=== PATIENT | female | born 1970 | race American Indian/Alaskan Native ===

== ENCOUNTER 2018-02-05 03:07 | Emergency (ER) | payer MEDICAID ==
[2018-02-05 03:31] VITALS: BP 133/66
[2018-02-05 04:22] LABS: Basophils % (Auto) 0.3 % (0.0-1.8); Eosinophils # (Auto) 0.1 K/mm3 (0.0-0.4); Eosinophils % (Auto) 1.2 % (0.0-4.3); Hematocrit 36.3 % (30.3-42.9); Hemoglobin 11.8 gm/dl (10.1-14.3); Lymphocytes # (Auto) 2.8 K/mm3 (1.2-5.4); Lymphocytes % (Auto) 34.1 % (13.4-35.0); Mean Corpuscular HGB Conc 33 % (30-34); Mean Corpuscular Hemoglobin 27 pg (28-32); Mean Corpuscular Volume 83 fl (79-97); Monocytes # (Auto) 0.7 K/mm3 (0.0-0.8); Monocytes % (Auto) 8.4 % (0.0-7.3); Platelet Count 284 K/mm3 (140-440); Red Blood Count 4.37 M/mm3 (3.65-5.03); Red Cell Distribution Width 14.2 % (13.2-15.2)
[2018-02-05 04:34] LABS: BUN/Creatinine Ratio 17; Blood Urea Nitrogen 12 mg/dL (7-17); Calcium 9.7 mg/dL (8.4-10.2); Hemolysis Index 45
== END 2018-02-05 03:46 | disposition left against medical advice (07) ==
LOC: ED 03:07
DX: N89.8 Other specified noninflammatory disorders of vagina (principal); R06.02 Shortness of breath; R68.2 Dry mouth, unspecified; Z53.21 Procedure and treatment not carried out due to patient leaving prior to being seen by health care provider
CPT/HCPCS: 36415; 80048; 82805; 82962; 84703; 85025

== ENCOUNTER 2018-02-05 19:48 | Emergency (ER) | payer MEDICAID ==
[2018-02-05 21:15] LABS: Basophils % (Auto) 0.2 % (0.0-1.8); Eosinophils # (Auto) 0.1 K/mm3 (0.0-0.4); Eosinophils % (Auto) 0.9 % (0.0-4.3); Hematocrit 36.1 % (30.3-42.9); Hemoglobin 11.8 gm/dl (10.1-14.3); Lymphocytes # (Auto) 2.6 K/mm3 (1.2-5.4); Lymphocytes % (Auto) 28.3 % (13.4-35.0); Mean Corpuscular HGB Conc 33 % (30-34); Mean Corpuscular Hemoglobin 27 pg (28-32); Mean Corpuscular Volume 83 fl (79-97); Monocytes # (Auto) 0.7 K/mm3 (0.0-0.8); Monocytes % (Auto) 7.5 % (0.0-7.3); Platelet Count 284 K/mm3 (140-440); Red Blood Count 4.37 M/mm3 (3.65-5.03); Red Cell Distribution Width 14.4 % (13.2-15.2)
[2018-02-05 21:37] LABS: BUN/Creatinine Ratio 18; Blood Urea Nitrogen 14 mg/dL (7-17); Calcium 9.3 mg/dL (8.4-10.2); Hemolysis Index 25
[2018-02-06] MEDS ORDERED: NACL 0.9% 1000 ML 1,000 ML ONE ×2 (02:25→03:01)
[2018-02-06] MEDS ORDERED: NACL 0.9% 1000 ML 1,000 ML IV ONE ×3 (02:25→04:04)
--- NOTE | 2018-02-06 03:17 | Emergency Department Report ---
<RD ALMAZAN - Last Filed: 02/06/18 06:56> ED General Adult HPI - General Chief complaint: Hyperglycemia Stated complaint: VAGINAL IRRITATION/HIGH BLOOD SUGAR Time Seen by Provider: 02/06/18 02:01 Source: patient Mode of arrival: Ambulatory Limitations: No Limitations - History of Present Illness Initial comments: 47-year-old -[place] female comes in stating that she has vaginal irritation 1 month. Patient reports " I feel like my sugar is high ". Patient reports she hasn't been taking care of herself lately and had been under stress reports that she's been out of her meds for a few days. She reports she's been off her Lantus for 3 weeks she usually takes 60 units at night. She reports that she has a few pills left of her metformin at 500 mg that she takes twice a day. She also reports that she takes Paxil 20 mg a day and lisinopril 5 mg a day. Patient has recently moved here from [place] on January 31 and if she is getting herself situated. . Location: genitals (vaginal irritation) Treatments Prior to Arrival: none - Related Data Previous Rx's Medication Instructions Recorded Last Taken Type Fluconazole [Diflucan] 150 mg PO DAILY #1 tablet 02/06/18 Unknown Rx Insulin Glargine,Hum.rec.anlog 60 unit SQ QHS #3 insuln.pen 02/06/18 Unknown Rx [Lantus Solostar] Lisinopril [Zestril TAB] 5 mg PO QDAY #30 tablet 02/06/18 Unknown Rx PARoxetine [Paxil] 20 mg PO DAILY #30 tablet 02/06/18 Unknown Rx metFORMIN [Glucophage] 500 mg PO BID #60 tablet 02/06/18 Unknown Rx Allergies Allergy/AdvReac Type Severity Reaction Status Date / Time No Known Allergies Allergy Verified 02/06/18 02:34 ED Review of Systems ROS: Stated complaint: VAGINAL IRRITATION/HIGH BLOOD SUGAR Other details as noted in HPI Constitutional: denies: chills, fever Eyes: eye pain (I pressure). denies: eye discharge, vision change ENT: denies: ear pain, throat pain Respiratory: denies: cough, shortness of breath, wheezing Cardiovascular: denies: chest pain, palpitations Endocrine: increased urine Gastrointestinal: denies: abdominal pain, nausea, diarrhea Genitourinary: frequency. denies: urgency, dysuria, discharge Musculoskeletal: denies: back pain, joint swelling, arthralgia Skin: denies: rash, lesions Neurological: denies: headache, weakness, paresthesias Psychiatric: denies: anxiety, depression, auditory hallucinations, visual hallucinations, homicidal thoughts, suicidal thoughts Hematological/Lymphatic: denies: easy bleeding, easy bruising ED Past Medical Hx - Past Medical History Previous Medical History?: Yes Hx Hypertension: Yes Hx Diabetes: Yes - Surgical History Past Surgical History?: No - Social History Smoking Status: Never Smoker Substance Use Type: Alcohol - Medications Home Medications: Home Medications Medication Instructions Recorded Confirmed Last Taken Type Fluconazole [Diflucan] 150 mg PO DAILY #1 tablet 02/06/18 Unknown Rx Insulin Glargine,Hum.rec.anlog 60 unit SQ QHS #3 insuln.pen 02/06/18 Unknown Rx [Lantus Solostar] Lisinopril [Zestril TAB] 5 mg PO QDAY #30 tablet 02/06/18 Unknown Rx PARoxetine [Paxil] 20 mg PO DAILY #30 tablet 02/06/18 Unknown Rx metFORMIN [Glucophage] 500 mg PO BID #60 tablet 02/06/18 Unknown Rx ED Physical Exam - General Limitations: No Limitations General appearance: alert, in no apparent distress - Head Head exam: Present: atraumatic, normocephalic - Eye Eye exam: Present: normal appearance - ENT ENT exam: Present: mucous membranes moist - Neck Neck exam: Present: normal inspection, full ROM. Absent: lymphadenopathy - Respiratory Respiratory exam: Present: normal lung sounds bilaterally. Absent: respiratory distress - Cardiovascular Cardiovascular Exam: Present: regular rate, normal rhythm. Absent: systolic murmur, diastolic murmur, rubs, gallop - GI/Abdominal GI/Abdominal exam: Present: soft, normal bowel sounds. Absent: distended, tenderness - Back Exam Back exam: Present: normal inspection, full ROM ED Course Vital Signs 02/05/18 02/05/18 02/06/18 20:09 20:36 04:42 Temperature 98.3 F 98.3 F 98.1 F Pulse Rate 92 H 90 70 Respiratory 20 18 17 Rate Blood Pressure 134/79 134/79 O2 Sat by Pulse 96 94 99 Oximetry ED Medical Decision Making - Lab Data Result diagrams: 02/05/18 21:01 02/05/18 21:01 - Medical Decision Making Patient has been evaluated by this provider fast track. Patient comes in with hyperglycemia. Patient's has had 3 L of normal saline. She's had now 9 units of Novolin regular insulin. Discussed with and Dr. Torres. Critical care attestation.: If time is entered above; I have spent that time in minutes in the direct care of this critically ill patient, excluding procedure time. ED Disposition Clinical Impression: Hyperglycemia due to type 2 diabetes mellitus Qualifiers: Diabetes mellitus manager intermediate insulin use: with manager intermediate use Qualified Code(s): E11.65 - Type 2 diabetes mellitus with hyperglycemia Disposition: - TO HOME OR SELFCARE Is pt being admited?: No Does the pt Need Aspirin: No Condition: Stable Instructions: Diabetes Mellitus Type 2 in Adults (ED) Additional Instructions: Please take medication as prescribed. It is imperative that she follow up with primary care have given you a handout to calls to make an appointment in the next 5-7 days. Prescriptions: Insulin Glargine,Hum.rec.anlog [Lantus Solostar] 60 unit SQ QHS #3 insuln.pen Fluconazole [Diflucan] 150 mg PO DAILY #1 tablet Lisinopril [Zestril TAB] 5 mg PO QDAY #30 tablet metFORMIN [Glucophage] 500 mg PO BID #60 tablet PARoxetine [Paxil] 20 mg PO DAILY #30 tablet Referrals: [facility] [Outside] - 3-5 Days [facility], [facility] [Provider Group] - 3-5 Days [facility] [Provider Group] - 3-5 Days [facility] [Provider Group] - 3-5 Days [facility] [Provider Group] - 3-5 Days Forms: Work/School Release Form(ED) Print Language: KAZAKH <LUZ RYAN - Last Filed: 02/06/18 08:40> ED Medical Decision Making - Lab Data Result diagrams: 02/05/18 21:01 02/05/18 21:01 - Medical Decision Making Patient reevaluated by myself. Patient's glucose is 285 on reevaluation which is trending down. Patient will be discharged home with prescriptions for Lantus 60 units subcutaneous at bedtime and metformin 500 mg by mouth twice a day. Refilled lisinopril 5 mg by mouth daily and Paxil 20 mg by mouth daily. Start Diflucan 150 mg by mouth once. Patient given one month's supply of medications and instructed to follow up with [facility] for refills. Follow-up with primary care for management of diabetes type 2 it's [facility] with referrals to endocrinology. Patient instructed to follow up in emergency room if symptoms of hyperglycemia returns. Patient was educated on signs and symptoms of when to return. ED Disposition Is pt being admited?: No Time of Disposition: 08:14
[2018-02-06] MEDS ORDERED: HumuLIN R IV ONE ×2 (03:58→06:57)
[2018-02-06] MEDS ORDERED: HumuLIN R SUB-Q ONE (05:42)
[2018-02-06 08:41] VITALS: BP 136/80
== END 2018-02-06 08:39 | disposition home or self-care (01) ==
LOC: ED 19:48
DX: E11.65 Type 2 diabetes mellitus with hyperglycemia (principal); I10 Essential (primary) hypertension; Z79.4 Long term (current) use of insulin
CPT/HCPCS: 36415; 80048; 82805; 82962; 85025; 96361; 96372; 96374; 96375; 99284; J7030; J1815

== ENCOUNTER 2018-09-24 21:27 | Emergency (ER) | payer MEDICAID, OTHER ==
--- NOTE | 2018-09-24 21:38 | Emergency Department Report ---
Blank Doc - Documentation Documentation: This is a 48-year-old female that presents with chest pain with sob. This initial assessment/diagnostic orders/clinical plan/treatment(s) is/are subject to change based on patient's health status, clinical progression and re- assessment by fellow clinical providers in the ED. Further treatment and workup at subsequent clinical providers discretion. Patient/guardians urged not to elope from the ED as their condition may be serious if not clinically assessed and managed. Initial orders include: 1- Patient sent to [facility] for further evaluation and treatment 2- labs 3- EKG 4-CXR
[2018-09-24 21:40] VITALS: BP 128/74
[2018-09-24 22:29] LABS: INR 0.95 (0.87-1.13)
[2018-09-24 22:30] LABS: Partial Thromboplastin Time 25.9 Sec. (24.2-36.6)
[2018-09-24 22:37] LABS: Basophils % (Auto) 0.2 % (0.0-1.8); Eosinophils # (Auto) 0.1 K/mm3 (0.0-0.4); Eosinophils % (Auto) 1.6 % (0.0-4.3); Hematocrit 36.7 % (30.3-42.9); Hemoglobin 12.1 gm/dl (10.1-14.3); Lymphocytes # (Auto) 2.3 K/mm3 (1.2-5.4); Lymphocytes % (Auto) 26.9 % (13.4-35.0); Mean Corpuscular HGB Conc 33 % (30-34); Mean Corpuscular Volume 84 fl (79-97); Monocytes # (Auto) 0.5 K/mm3 (0.0-0.8); Monocytes % (Auto) 6.4 % (0.0-7.3); Platelet Count 222 K/mm3 (140-440); Red Blood Count 4.37 M/mm3 (3.65-5.03); Red Cell Distribution Width 14.3 % (13.2-15.2)
[2018-09-24 22:38] LABS: Alanine Aminotransferase 28 units/L (7-56); Albumin 3.3 g/dL (3.9-5); BUN/Creatinine Ratio 16; Blood Urea Nitrogen 13 mg/dL (7-17); Calcium 9.1 mg/dL (8.4-10.2); Hemolysis Index 35
--- NOTE | 2018-09-24 23:24 | XRay Report ---
PROCEDURE: XR CHEST ROUTINE 2V TECHNIQUE: PA and lateral chest radiographs were obtained. HISTORY: Chest Pain COMPARISONS: None. FINDINGS: Heart: Normal. Mediastinum/Vessels: Normal. Lungs/Pleural space: Normal. Bony thorax: No acute osseous abnormality. IMPRESSION: Normal examination. This document is electronically signed by Brii Wu DO., September 24 2018 11:22:40 PM ET
== END 2018-09-25 02:30 | disposition left against medical advice (07) ==
LOC: ED 21:27
DX: R07.89 Other chest pain (principal); Z53.21 Procedure and treatment not carried out due to patient leaving prior to being seen by health care provider
CPT/HCPCS: 36415; 71046; 80053; 84484; 84703; 85025; 85610; 85730; 93005; 93010

== ENCOUNTER 2018-09-26 01:30 | Emergency (ER) | payer SELFPAY ==
[2018-09-26 02:41] VITALS: BP 163/88
[2018-09-26 03:55] LABS: Basophils % (Auto) 0.3 % (0.0-1.8); Eosinophils # (Auto) 0.1 K/mm3 (0.0-0.4); Eosinophils % (Auto) 1.2 % (0.0-4.3); Hematocrit 38.3 % (30.3-42.9); Hemoglobin 12.7 gm/dl (10.1-14.3); Lymphocytes # (Auto) 2.3 K/mm3 (1.2-5.4); Lymphocytes % (Auto) 28.7 % (13.4-35.0); Mean Corpuscular HGB Conc 33 % (30-34); Mean Corpuscular Hemoglobin 28 pg (28-32); Mean Corpuscular Volume 83 fl (79-97); Monocytes # (Auto) 0.5 K/mm3 (0.0-0.8); Monocytes % (Auto) 6.3 % (0.0-7.3); Platelet Count 241 K/mm3 (140-440); Red Blood Count 4.59 M/mm3 (3.65-5.03); Red Cell Distribution Width 14.2 % (13.2-15.2)
[2018-09-26 03:59] LABS: HCG Qualitative,Urine Negative (Negative)
[2018-09-26 04:04] LABS: Bacteria,Urine 2+ /HPF (Negative); Bilirubin,Urine NEG (Negative); Blood,Urine NEG (Negative); Color,Urine Straw (Yellow); Protein,Urine <15 mg/dL mg/dL (Negative); Urobilinogen,Urine < 2.0 mg/dL (<2.0)
[2018-09-26 04:14] LABS: BUN/Creatinine Ratio 19; Blood Urea Nitrogen 15 mg/dL (7-17); Calcium 8.7 mg/dL (8.4-10.2); Hemolysis Index 4
== END 2018-09-26 07:30 | disposition left against medical advice (07) ==
LOC: ED 01:30
DX: R06.02 Shortness of breath (principal); N89.8 Other specified noninflammatory disorders of vagina; Z53.21 Procedure and treatment not carried out due to patient leaving prior to being seen by health care provider
CPT/HCPCS: 36415; 80048; 81001; 81025; 85025

== ENCOUNTER 2018-11-11 08:25 | Emergency (ER) | payer MEDICAID ==
[2018-11-11] MEDS ORDERED: ASPIRIN PO ONE (08:33)
[2018-11-11 08:34] VITALS: BP 134/80
[2018-11-11 09:04] LABS: Basophils % (Auto) 0.3 % (0.0-1.8); Eosinophils # (Auto) 0.1 K/mm3 (0.0-0.4); Eosinophils % (Auto) 1.4 % (0.0-4.3); Hematocrit 38.9 % (30.3-42.9); Hemoglobin 12.9 gm/dl (10.1-14.3); Lymphocytes # (Auto) 3.6 K/mm3 (1.2-5.4); Lymphocytes % (Auto) 35.5 % (13.4-35.0); Mean Corpuscular HGB Conc 33 % (30-34); Mean Corpuscular Volume 85 fl (79-97); Monocytes # (Auto) 0.8 K/mm3 (0.0-0.8); Monocytes % (Auto) 8.2 % (0.0-7.3); Platelet Count 226 K/mm3 (140-440); Red Blood Count 4.58 M/mm3 (3.65-5.03); Red Cell Distribution Width 13.6 % (13.2-15.2)
--- NOTE | 2018-11-11 09:19 | XRay Report ---
ROUTINE CHEST, TWO VIEWS: HISTORY: chest pain. The trachea, heart, mediastinal contour, lung teague and bony thorax are unremarkable. IMPRESSION: Unremarkable chest x-ray. No change since 09/24/18.
--- NOTE | 2018-11-11 09:21 | Emergency Department Report ---
Chief Complaint: Chest Pain Stated Complaint: CHEST/BACK PAIN/VAGINAL DISCOMFORT Time Seen by Provider: 11/11/18 09:20 - HPI History of Present Illness: CO CP AND BACK PAIN PMH DEPRESSION HTN NAD AT 0920 MSE COMPLETE - Exam Vital Signs: Vital Signs 11/11/18 08:31 Temperature 97.8 F Pulse Rate 82 Respiratory 18 Rate Blood Pressure 134/80 O2 Sat by Pulse 98 Oximetry MSE screening note: Focused history and physical exam performed. Due to findings the following was ordered: ED Medical Decision Making - Lab Data Result diagrams: 11/11/18 08:42 ED Disposition for MSE Condition: Stable
[2018-11-11 09:25] LABS: BUN/Creatinine Ratio 19; Blood Urea Nitrogen 13 mg/dL (7-17); Calcium 9.1 mg/dL (8.4-10.2); Hemolysis Index 4
[2018-11-11] MEDS ORDERED: NACL 0.9% 1000 ML 1,000 ML IV ONE (12:51)
[2018-11-11] MEDS ORDERED: HumuLIN R IV ONE (12:52)
--- NOTE | 2018-11-11 13:13 | Emergency Department Report ---
ED General Adult HPI - General Chief complaint: Chest Pain Stated complaint: CHEST/BACK PAIN/VAGINAL DISCOMFORT Time Seen by Provider: 11/11/18 09:20 Source: patient Mode of arrival: Ambulatory Limitations: No Limitations - History of Present Illness Initial comments: Patient is a 48-year-old -[place] female comes to the ER with numerous complaints including, shortness of breath, elevated blood sugar, she is out of her insulin, and vaginal itching. Patient's home medications include metformin, lisinopril, Paxil, aspirin, iron, vitamin D, and regular insulin pens. Patient states that she has not gotten her vitamin D filled. She states that she is out of her insulin. Past medical history includes diabetes type 2 and hypertension. Patient states she's never been told that she has hyperlipidemia. She denies any previous cardiac history. -: Gradual Associated Symptoms: chest pain, shortness of breath. denies: confusion, cough, diaphoresis, fever/chills, headaches, loss of appetite, malaise, nausea/vomiting, rash, seizure, syncope, weakness Treatments Prior to Arrival: none - Related Data Previous Rx's Medication Instructions Recorded Last Taken Type Lisinopril [Prinivil] 5 mg PO DAILY #30 tablet 06/30/18 Unknown Rx PARoxetine [Paxil] 20 mg PO DAILY #30 tablet 06/30/18 Unknown Rx metFORMIN [Glucophage] 500 mg PO BID #60 tablet 06/30/18 Unknown Rx Insulin Glargine,Hum.rec.anlog 60 unit SQ QHS #3 insuln.pen 11/11/18 Unknown Rx [Lantus Solostar] Allergies Allergy/AdvReac Type Severity Reaction Status Date / Time No Known Allergies Allergy Verified 02/06/18 02:34 ED Review of Systems ROS: Stated complaint: CHEST/BACK PAIN/VAGINAL DISCOMFORT Other details as noted in HPI Comment: All other systems reviewed and negative ED Past Medical Hx - Past Medical History Previous Medical History?: Yes Hx Hypertension: Yes Hx Diabetes: Yes Hx Psychiatric Treatment: Yes (Depression) Additional medical history: h pylori- not treated as of 11-16 - Surgical History Past Surgical History?: Yes Additional Surgical History: Tubal ligation - Family History Family history: no significant - Social History Smoking Status: Never Smoker Substance Use Type: None - Medications Home Medications: Home Medications Medication Instructions Recorded Confirmed Last Taken Type Lisinopril [Prinivil] 5 mg PO DAILY #30 tablet 06/30/18 Unknown Rx PARoxetine [Paxil] 20 mg PO DAILY #30 tablet 06/30/18 Unknown Rx metFORMIN [Glucophage] 500 mg PO BID #60 tablet 06/30/18 Unknown Rx Insulin Glargine,Hum.rec.anlog 60 unit SQ QHS #3 insuln.pen 11/11/18 Unknown Rx [Lantus Solostar] ED Physical Exam - General Limitations: No Limitations General appearance: alert, in no apparent distress - Head Head exam: Present: atraumatic, normocephalic - Eye Eye exam: Present: normal appearance, PERRL, EOMI - ENT ENT exam: Present: mucous membranes moist - Neck Neck exam: Present: normal inspection - Respiratory Respiratory exam: Present: normal lung sounds bilaterally - Cardiovascular Cardiovascular Exam: Present: regular rate - GI/Abdominal GI/Abdominal exam: Present: soft, normal bowel sounds - Rectal Rectal exam: Present: deferred - Extremities Exam Extremities exam: Present: normal inspection, full ROM - Back Exam Back exam: Present: normal inspection, full ROM - Neurological Exam Neurological exam: Present: alert, oriented X3, CN II-XII intact, normal gait - Psychiatric Psychiatric exam: Present: normal affect, normal mood - Skin Skin exam: Present: warm, dry, intact ED Course Vital Signs 11/11/18 08:31 Temperature 97.8 F Pulse Rate 82 Respiratory 18 Rate Blood Pressure 134/80 O2 Sat by Pulse 98 Oximetry ED Medical Decision Making - Lab Data Result diagrams: 11/11/18 08:42 11/11/18 08:42 - EKG Data -: EKG Interpreted by Ak EKG shows normal: sinus rhythm Rate: normal - EKG Data When compared to previous EKG there are: no significant change Interpretation: no acute changes - Radiology Data Radiology results: report reviewed, image reviewed - Medical Decision Making Patient has had 2 negative troponins. She's had 2 12-lead EKGs that showed no acute changes. Patient's lab work was noted. She is hyperglycemic. She was given insulin here in the emergency room. Chest x-ray showed no consolidation and no evidence of dissection. Mediastinum is of normal size. Pt requests a work note; she left work and was told she could not come back until she had a note. Pt is being dc home with dc plan of care that includes her rx and follow up with PCP VSS NAD ambulatory and taking po without difficulty. Vital Signs 11/11/18 08:31 Temperature 97.8 F Pulse Rate 82 Respiratory 18 Rate Blood Pressure 134/80 O2 Sat by Pulse 98 Oximetry Labs 11/11/18 11/11/18 11/11/18 08:42 08:42 11:32 WBC 10.0 RBC 4.58 Hgb 12.9 Hct 38.9 MCV 85 MCH 28 MCHC 33 RDW 13.6 Plt Count 226 Lymph % (Auto) 35.5 H [place] % (Auto) 8.2 H Eos % (Auto) 1.4 Baso % (Auto) 0.3 Lymph # 3.6 [place] # 0.8 Eos # 0.1 Baso # 0.0 Seg Neutrophils % 54.6 Seg Neutrophils # 5.4 Sodium 135 L Potassium 4.2 Chloride 98.7 Carbon Dioxide 24 Anion Gap 17 BUN 13 Creatinine 0.7 Estimated GFR > 60 BUN/Creatinine Ratio 19 Glucose 352 H Calcium 9.1 Troponin T < 0.010 < 0.010 Urine Color Urine Turbidity Urine pH Ur Specific [place] Urine Protein Urine Glucose (UA) Urine Ketones Urine Blood Urine Nitrite Urine Bilirubin Urine Urobilinogen Ur Leukocyte Esterase Urine WBC (Auto) Urine RBC (Auto) U Epithel Cells (Auto) Urine Bacteria (Auto) 11/11/18 11/11/18 14:07 14:22 WBC RBC Hgb Hct MCV MCH MCHC RDW Plt Count Lymph % (Auto) [place] % (Auto) Eos % (Auto) Baso % (Auto) Lymph # [place] # Eos # Baso # Seg Neutrophils % Seg Neutrophils # Sodium Potassium Chloride Carbon Dioxide Anion Gap BUN Creatinine Estimated GFR BUN/Creatinine Ratio Glucose Calcium Troponin T < 0.010 Urine Color Straw Urine Turbidity Clear Urine pH 5.0 Ur Specific [place] 1.027 Urine Protein <15 mg/dl Urine Glucose (UA) >=500 Urine Ketones Neg Urine Blood Neg Urine Nitrite Neg Urine Bilirubin Neg Urine Urobilinogen < 2.0 Ur Leukocyte Esterase Neg Urine WBC (Auto) 2.0 Urine RBC (Auto) < 1.0 U Epithel Cells (Auto) 3.0 Urine Bacteria (Auto) 1+ Critical care attestation.: If time is entered above; I have spent that time in minutes in the direct care of this critically ill patient, excluding procedure time. ED Disposition Clinical Impression: Medical non-compliance, Diabetes, Hyperglycemia, Medication refill Disposition: [id number]-01 TO HOME OR SELFCARE Is pt being admited?: No Does the pt Need Aspirin: No Condition: Stable Instructions: Diabetes Mellitus Type 2 in Adults (ED) Additional Instructions: DIET TOLERATED MEDS ORDERED TODAY IN ER FOLLOW INSTRUCTIONS ON THE BOTTLE FOLLOW UP PCP WITHIN 48 HOURS TO ENSURE YOU ARE GETTING BETTER ACTIVITY TOLERATED MOTRIN OR TYLENOL FOR PAIN OR FEVER RETURN TO THE ER FOR WORSENING SYMPTOMS NOT RELIEVED BY YOUR MEDICATIONS. Prescriptions: Insulin Glargine,Hum.rec.anlog [Lantus Solostar] 60 unit SQ QHS #3 insuln.pen Referrals: [facility] [Primary Care Provider] - 3-5 Days Forms: Work/School Release Form(ED) Time of Disposition: 13:13
[2018-11-11 14:44] LABS: Bacteria,Urine 1+ /HPF (Negative); Bilirubin,Urine NEG (Negative); Blood,Urine NEG (Negative); Color,Urine Straw (Yellow); Protein,Urine <15 mg/dL mg/dL (Negative); RBC,Urine < 1.0 /HPF (0.0-6.0); Urobilinogen,Urine < 2.0 mg/dL (<2.0)
== END 2018-11-11 16:12 | disposition home or self-care (01) ==
LOC: ED 08:25
DX: E11.65 Type 2 diabetes mellitus with hyperglycemia (principal); Z76.0 Encounter for issue of repeat prescription; I10 Essential (primary) hypertension; Z98.51 Tubal ligation status; Z79.4 Long term (current) use of insulin
CPT/HCPCS: 36415; 71046; 80048; 81001; 84484; 85025; 93005; 93010; 96361; 96374; 99284; J7030; J1815

== ENCOUNTER 2019-04-17 02:31 | Emergency (ER) | payer SELFPAY ==
[2019-04-17 03:14] LABS: Basophils % (Auto) 0.3 % (0.0-1.8); Eosinophils # (Auto) 0.1 K/mm3 (0.0-0.4); Eosinophils % (Auto) 1.2 % (0.0-4.3); Hematocrit 36.2 % (30.3-42.9); Hemoglobin 11.8 gm/dl (10.1-14.3); Lymphocytes # (Auto) 3.2 K/mm3 (1.2-5.4); Lymphocytes % (Auto) 40.3 % (13.4-35.0); Mean Corpuscular HGB Conc 33 % (30-34); Mean Corpuscular Volume 84 fl (79-97); Monocytes # (Auto) 0.6 K/mm3 (0.0-0.8); Monocytes % (Auto) 7.6 % (0.0-7.3); Platelet Count 213 K/mm3 (140-440); Red Cell Distribution Width 13.6 % (13.2-15.2)
[2019-04-17 03:21] LABS: BUN/Creatinine Ratio 19; Blood Urea Nitrogen 13 mg/dL (7-17); Calcium 8.8 mg/dL (8.4-10.2); Hemolysis Index 5
[2019-04-17] MEDS ORDERED: HumuLIN R SUB-Q ONE (03:27)
--- NOTE | 2019-04-17 03:39 | XRay Report ---
CHEST 2 VIEWS INDICATION / CLINICAL INFORMATION: SOB. COMPARISON: 11/11/2018 FINDINGS: SUPPORT DEVICES: None. HEART / MEDIASTINUM: No significant abnormality. LUNGS / PLEURA: No significant pulmonary or pleural abnormality. No pneumothorax. ADDITIONAL FINDINGS: No significant additional findings. IMPRESSION: 1. No acute findings. Signer Name: Clark Hernandez MD Signed: 04/17/2019 3:34 AM Workstation Name: [id number]
--- NOTE | 2019-04-17 03:48 | Emergency Department Report ---
HPI - General Chief Complaint: Dyspnea/Respdistress Time Seen by Provider: 04/17/19 02:53 - HPI HPI: 48-year-old female presents to the emergency department with a complaint of a few days of shortness of breath. She also complains of some elevated blood s ugar. The patient does have a history of diabetes for which she takes Lantus 60 units at night but has been out of this medication with the past 4 days. She also says that she has been out of her lisinopril 5 mg and Paxil 20 mg for the past 4 days as well. She thinks that the lack of Paxil could be causing some anxiety and panic attacks and this could be the source of her shortness of breath. She denies any fever, chest pain, nausea, vomiting or diaphoresis. She denies any lower extremity swelling. No recent travel or sick contacts at home. She has not taken anything for her symptoms prior to presentation. She checked her blood sugar prior to arrival today and says it was about 300. No PCP. ED Past Medical Hx - Past Medical History Previous Medical History?: Yes Hx Hypertension: Yes Hx Diabetes: Yes Hx Psychiatric Treatment: Yes (Depression) Additional medical history: h pylori- not treated as of 11-16 - Surgical History Past Surgical History?: Yes Additional Surgical History: Tubal ligation - Social History Smoking Status: Current Some Day Smoker - Medications Home Medications: Home Medications Medication Instructions Recorded Confirmed Last Taken Type metFORMIN [Glucophage] 500 mg PO BID #60 tablet 06/30/18 Unknown Rx ALBUTEROL Inhaler (OR & NICU) 2 puff IH QID PRN #1 inhalation 04/17/19 Unknown Rx [ProAir HFA Inhaler] Insulin Glargine,Hum.rec.anlog 60 unit SQ QHS #1 insuln.pen 04/17/19 Unknown Rx [Lantus Solostar] Lisinopril [Zestril TAB] 5 mg PO QDAY #20 tablet 04/17/19 Unknown Rx PARoxetine [Paxil] 20 mg PO DAILY #14 tablet 04/17/19 Unknown Rx ED Review of Systems ROS: Stated complaint: SOB POSS HIGH BS Other details as noted in HPI Comment: All other systems reviewed and negative Constitutional: denies: chills, fever Eyes: denies: eye pain, vision change ENT: denies: ear pain, throat pain Respiratory: shortness of breath. denies: cough Cardiovascular: denies: chest pain, palpitations Gastrointestinal: denies: abdominal pain, vomiting Genitourinary: denies: dysuria, discharge Musculoskeletal: denies: back pain, arthralgia Neurological: denies: headache, weakness Psychiatric: anxiety. denies: depression Physical Exam - Physical Exam Vital Signs: Vital Signs 04/17/19 02:40 Temperature 98.7 F Pulse Rate 68 Respiratory 14 Rate Blood Pressure 144/67 O2 Sat by Pulse 97 Oximetry Physical Exam: GENERAL: The patient is well-developed well-nourished. HENT: Normocephalic. Atraumatic. Patient has moist mucous membranes. EYES: Extraocular motions are intact. NECK: Supple. Trachea is midline. CHEST/LUNGS: Clear to auscultation. There is no respiratory distress noted. HEART/CARDIOVASCULAR: Regular. There is no tachycardia. There is no murmur. ABDOMEN: Abdomen is soft, nontender. Patient has normal bowel sounds. There is no abdominal distention. SKIN: Skin is warm and dry. NEURO: The patient is awake, alert, and oriented. The patient is cooperative. The patient has no focal neurologic deficits. Normal speech. MUSCULOSKELETAL: There is no tenderness or deformity. There is no evidence of acute injury. ED Course Vital Signs 04/17/19 02:40 Temperature 98.7 F Pulse Rate 68 Respiratory 14 Rate Blood Pressure 144/67 O2 Sat by Pulse 97 Oximetry ED Medical Decision Making - Lab Data Result diagrams: 04/17/19 02:50 04/17/19 02:50 - EKG Data -: EKG Interpreted by Me EKG shows normal: sinus rhythm, axis, intervals, QRS complexes, ST-T waves Rate: normal - EKG Data When compared to previous EKG there are: previous EKG unavailable Interpretation: normal EKG - Radiology Data Radiology results: report reviewed, image reviewed interpreted by me: Chest x-ray does not show any acute process. There are no pleural effusions, obvious pneumonia and there is no pneumothorax. CTA CHEST WITH CONTRAST INDICATION : SOB, elevated dimer. TECHNIQUE: Axial imaging performed through the chest, with contrast bolus timing set to maximize opacification of the pulmonary arteries. 3-plane MIP reformatted images were obtained. All CT scans at this location are performed using CT dose reduction for ALARA by means of automated exposure control. 100 mL of intravenous contrast administered. Consent was obtained prior to the administration of contrast. COMPARISON: Same day chest x-ray. FINDINGS: Bolus: Contrast bolus timing is adequate. PTE: No filling defect is present to suggest PTE. Mediastinum: Heart and great vessels appear normal. No pathologic mediastinal adenopathy. Lungs: Lungs are clear. Upper abdomen: Limited imaging of the upper abdomen shows nothing acute. Bones: Degenerative changes in the spine with nothing acute. IMPRESSION: Negative for PTE. No CHF or pneumonia. - Medical Decision Making This patient presents to the emergency department with a complaint of some elevated blood sugar secondary to medication noncompliance as she has been out of the medication for about 4 days. She also chooses not to take the metformin. She has also been out of her Paxil and her lisinopril. Patient also complains of some shortness of breath. Lungs are clear to auscultation. No tachypnea or accessory muscle use. No signs of any respiratory distress. Chest x-ray was done that does not show any pneumonia, pleural effusions, focal consolidation, pneumothorax, or any other acute process. The patient's blood sugar came back at about 320. She was given 6 units of subcutaneous insulin and upon reevaluation the blood sugar has come down. Rest the patient's labs are mostly unremarkable except for a elevated and equivocal d-dimer. The patient will have a CT angiography of the chest completed. If negative, the patient be discharged home to follow up with primary care and has been given prescriptions for her medications, as well as an albuterol inhaler. If CT angiography is positive for a pulmonary embolism, the patient will be admitted to the hospital by my colleague, Dr Swain. - Differential Diagnosis PE, Asthma, DKA, HHNK, Pneumonia Critical Care Time: No Critical care attestation.: If time is entered above; I have spent that time in minutes in the direct care of this critically ill patient, excluding procedure time. ED Disposition Clinical Impression: Medication refill, Hyperglycemia, Shortness of breath Disposition: DC-07 LEFT AGAINST MED ADVICE Is pt being admited?: No Condition: Stable Additional Instructions: Please follow-up with a primary care physician in the next few days. Take your diabetes and blood pressure medications as previously prescribed. Try and stay away from foods that are high in salt and caffeinated products to help with your blood pressure. Keep a blood pressure log. Try and stay away from foods that are high in sugar, carbohydrates and starches to help with your diabetes. Keep a blood sugar log. Return to the emergency Department with any worsening of your symptoms or any acute distress. Prescriptions: Insulin Glargine,Hum.rec.anlog [Lantus Solostar] 60 unit SQ QHS #1 insuln.pen PARoxetine [Paxil] 20 mg PO DAILY #14 tablet ALBUTEROL Inhaler (OR & NICU) [ProAir HFA Inhaler] 2 puff IH QID PRN #1 inhalation PRN Reason: Shortness Of Breath Lisinopril [Zestril TAB] 5 mg PO QDAY #20 tablet Referrals: PRIMARY CARE, [Primary Care Provider] - 2-3 Days [facility] [Outside] - 2-3 Days [facility] [Outside] - 2-3 Days [facility] [place] [Outside] - 2-3 Days Time of Disposition: 05:36
[2019-04-17] MEDS ORDERED: DUONEB *Not for PRN Use IH ONE (04:28)
[2019-04-17 05:13] LABS: Bilirubin,Urine NEG (Negative); Blood,Urine NEG (Negative); Color,Urine Yellow (Yellow); Protein,Urine <15 mg/dL mg/dL (Negative); Urobilinogen,Urine < 2.0 mg/dL (<2.0)
[2019-04-17 07:19] LABS: HCG Qualitative,Urine Negative (Negative)
--- NOTE | 2019-04-17 08:37 | Cat Scan Report ---
CTA CHEST WITH CONTRAST INDICATION : SOB, elevated dimer. TECHNIQUE: Axial imaging performed through the chest, with contrast bolus timing set to maximize opa cification of the pulmonary arteries. 3-plane MIP reformatted images were obtained. All CT scans at this location are performed using CT dose reduction for ALARA by means of automated exposure control. 100 mL of intravenous contrast administered. Consent was obtained prior to the administration of cont rast. COMPARISON: Same day chest x-ray. FINDINGS: Bolus: Contrast bolus timing is adequate. PTE: No filling defect is present to suggest PTE. Mediastinum: Heart and great vessels appear normal. No pathologic mediastinal adenopathy. Lungs: Lungs are clear. Upper abdomen: Limited imaging of the upper abdomen shows nothing acute. Bones: Degenerative changes in the spine with nothing acute. IMPRESSION: Negative for PTE. No CHF or pneumonia. Signer Name: Alcides Nowak MD Signed: 04/17/2019 8:33 AM Workstation Name: [id number]
[2019-04-17 09:22] VITALS: BP 135/68
--- NOTE | 2019-04-17 09:45 | Emergency Department Report ---
Blank Doc - Documentation Documentation: I was requested by the nurse to see the patient. I saw and examined the patien t. The nurse told me the patient was complaining of chest "pressure". A she states that she is having "panic attacks". Patient told me that she was having "chest congestion". In any case these episodes occurred once at about 9:00 last night and then another time while in the emergency department but was on reported to the nurse". They're associated with shortness of breath and chest "congestion". States she does not have a doctor. She states she had a stress test done many years ago. He has never had a cardiac catheterization. The patient is somewhat morbidly obese. She is in no distress. HEENT sclerae clear normocephalic Neck supple no jugular venous distention Chest clear to auscultation Cardiac S1-S2 regular rate without murmur GI the abdomen is soft and nontender Extremities no Calf pain trace edema Neurological grossly intact Psychiatric mental capacity Assessment Dyspnea Hyperglycemia type 2 diabetes uncontrolled Plan Patient is encouraged to be admitted to the hospital for cardiac workup. The risks and benefits have been explained to her. She states that she just wants an inhaler and inhaler and a prescription for Paxil. She is encouraged to follow-up at her earliest opportunity. She should return should he she desire further evaluation at this hospital. She is signing out AGAINST MEDICAL ADVICE.
== END 2019-04-17 09:56 | disposition left against medical advice (07) ==
LOC: ED 02:31
DX: E11.65 Type 2 diabetes mellitus with hyperglycemia (principal); R06.02 Shortness of breath; I10 Essential (primary) hypertension; F32.9 Major depressive disorder, single episode, unspecified; F17.200 Nicotine dependence, unspecified, uncomplicated; Z98.51 Tubal ligation status
CPT/HCPCS: 36415; 71046; 71275; 80048; 81001; 81025; 82962; 84484; 85025; 85379; 93005; 93010; 94640; 96372; 99285; Q9967; 94644; J1815

== ENCOUNTER 2019-05-15 22:31 | Emergency (ER) | payer SELFPAY ==
[2019-05-15] MEDS ORDERED: ASPIRIN 325 MG TAB PO ONE (23:11)
--- NOTE | 2019-05-15 23:51 | XRay Report ---
CHEST 1 VIEW INDICATION: Chest Pain. COMPARISON: 04/17/2019. FINDINGS: Support devices: None. Heart: Within normal limits. Lungs/Pleura: No acute air space or interstitial disease. Additional findings: None. IMPRESSION: No acute abnormality. Signer Name: Sravan Dean MD Signed: 05/15/2019 11:47 PM Workstation Name: [id number]
[2019-05-16 00:02] LABS: BUN/Creatinine Ratio 15; Blood Urea Nitrogen 12 mg/dL (7-17); Calcium 8.8 mg/dL (8.4-10.2); Hemolysis Index 55
[2019-05-16 00:25] LABS: Basophils % (Auto) 0.4 % (0.0-1.8); Eosinophils # (Auto) 0.1 K/mm3 (0.0-0.4); Eosinophils % (Auto) 1.7 % (0.0-4.3); Hematocrit 35.4 % (30.3-42.9); Hemoglobin 11.6 gm/dl (10.1-14.3); Lymphocytes # (Auto) 2.8 K/mm3 (1.2-5.4); Lymphocytes % (Auto) 36.6 % (13.4-35.0); Mean Corpuscular HGB Conc 33 % (30-34); Mean Corpuscular Volume 84 fl (79-97); Monocytes # (Auto) 0.8 K/mm3 (0.0-0.8); Monocytes % (Auto) 10.1 % (0.0-7.3); Platelet Count 226 K/mm3 (140-440); Red Cell Distribution Width 13.6 % (13.2-15.2)
--- NOTE | 2019-05-16 01:52 | Emergency Department Report ---
ED Chest Pain HPI - General Chief Complaint: Chest Pain Stated Complaint: SOB, OUT OF MEDS, CHEST PAIN, BACK PAIN Time Seen by Provider: 05/16/19 01:30 Source: patient Mode of arrival: Ambulatory Limitations: No Limitations - History of Present Illness Initial Comments: 48-year-old female the past medical history of obesity, hypertension, diabetes, depression, anxiety, and previous H. pylori infection and tubal ligation presents to the hospital complains of ongoing shortness of breath and chest pain. Patient states she's had shortness of breath for a few weeks. She has noticed some mild increased dyspnea while climbing stairs last 2-3 days. Of intermittent left-sided sharp stabbing pain radiating to the back for a few days as well. There are no aggravating or alleviating factors. Pain is not worse with palpation, movement, or deep inspiration. Patient reports cough productive of clear sputum and also feel like sputum is choking her when it gets stuck in her throat. This causes her to have a panic attack as well. She also states that in the past she's been told that she has reflex and might need to be on additional medications. Patient does not smoke, denies history of elevated cholesterol, denies family history CAD, denies history of PE/DVT, recent travel, recent surgery, hemoptysis, or hormone replacement therapy. She was seen here one month ago requesting med refills with complaint of chest pain and shortness of breath that she suspected was due to anxiety. Admission was recommended and patient sign out AMA. Patient not receive any medication scripts at discharge, has not followed up, and therefore has not had any of her medications and one month. She reports that last stress test was several years ago and has never had a cardiac cath. Patient had a elevated d-dimer with a negative CTA chest during her visit here April 17. - Related Data Previous Rx's Medication Instructions Recorded Last Taken Type ALBUTEROL Inhaler (OR & NICU) 2 puff IH QID PRN #1 inhalation 05/16/19 Unknown Rx [ProAir HFA Inhaler] Famotidine [Pepcid] 20 mg PO BID #30 tablet 05/16/19 Unknown Rx Insulin Glargine,Hum.rec.anlog 60 unit SQ QHS 30 Days insuln.pen 05/16/19 Unkno wn Rx [Lantus Solostar] Lisinopril [Zestril TAB] 5 mg PO QDAY #30 tablet 05/16/19 Unknown Rx PARoxetine [Paxil] 20 mg PO DAILY #30 tablet 05/16/19 Unknown Rx guaiFENesin/DEXTROMETHORPHAN 1 each PO BID PRN #20 tab.er.12h 05/16/19 Unknown Rx [Mucinex DM ER 600-30 mg TAB] metFORMIN [Glucophage] 500 mg PO BID #60 tablet 05/16/19 Unknown Rx Allergies Allergy/AdvReac Type Severity Reaction Status Date / Time No Known Allergies Allergy Verified 02/06/18 02:34 Heart Score - HEART Score History: Slightly suspicious EKG: Normal Age: 45-65 Risk factors: > 3 risk factors or hx of atherosclerotic disease Troponin: < normal limit HEART Score: 3 ED Review of Systems ROS: Stated complaint: SOB, OUT OF MEDS, CHEST PAIN, BACK PAIN Other details as noted in HPI Comment: All other systems reviewed and negative ED Past Medical Hx - Past Medical History Previous Medical History?: Yes Hx Hypertension: Yes Hx Diabetes: Yes Hx Psychiatric Treatment: Yes (Depression) Additional medical history: h pylori- not treated as of 11-16 - Surgical History Past Surgical History?: Yes Additional Surgical History: Tubal ligation - Social History Smoking Status: Never Smoker Substance Use Type: None - Medications Home Medications: Home Medications Medication Instructions Recorded Confirmed Last Taken Type ALBUTEROL Inhaler (OR & NICU) 2 puff IH QID PRN #1 inhalation 05/16/19 Unknown Rx [ProAir HFA Inhaler] Famotidine [Pepcid] 20 mg PO BID #30 tablet 05/16/19 Unknown Rx Insulin Glargine,Hum.rec.anlog 60 unit SQ QHS 30 Days insuln.pen 05/16/19 Unknown Rx [Lantus Solostar] Lisinopril [Zestril TAB] 5 mg PO QDAY #30 tablet 05/16/19 Unknown Rx PARoxetine [Paxil] 20 mg PO DAILY #30 tablet 05/16/19 Unknown Rx guaiFENesin/DEXTROMETHORPHAN 1 each PO BID PRN #20 tab.er.12h 05/16/19 Unknown Rx [Mucinex DM ER 600-30 mg TAB] metFORMIN [Glucophage] 500 mg PO BID #60 tablet 05/16/19 Unknown Rx ED Physical Exam - General Limitations: No Limitations - Other Other exam information: General: No acute distress Head: Atraumatic Eyes: normal appearance ENT: Moist mucous membranes Neck: Normal appearance, no midline tenderness Chest: Clear to auscultation bilaterally, no respiratory distress , chest wall nontender CV: Regular rate and rhythm Abdomen: Soft, normal bowel sounds, nontender, nondistended, no rebound or guarding Back: Normal inspection Extremity: Normal inspection infection, full range of motion, no calf tenderness or leg edema Neuro: Alert O x 3, no facial asymmetry, speech clear, no gross motor sensory deficit Psych: Appropriate behavior Skin: No rash ED Course Vital Signs 05/15/19 22:38 Temperature 97.9 F Pulse Rate 81 Respiratory 20 Rate Blood Pressure 149/73 O2 Sat by Pulse 99 Oximetry DENIS score - Denis Score Age > 65: (0) No Aspirin use within the Past 7 Days: (0) No 3 or more CAD Risk Factors: (1) Yes 2 or more Angina events in past 24 hrs: (0) No Known CAD with more than 50% Stenosis: (0) No Elevated Cardiac Markers: (0) No ST Deviation Greater than 0.5mm: (0) No DENIS Score: 1 ED Medical Decision Making - Lab Data Result diagrams: 05/15/19 23:15 05/15/19 23:15 Lab Results 05/15/19 05/15/19 05/15/19 Range/Units 23:15 23:15 23:17 WBC 7.6 (4.5-11.0) K/mm3 RBC 4.20 (3.65-5.03) M/mm3 Hgb 11.6 (10.1-14.3) gm/dl Hct 35.4 (30.3-42.9) % MCV 84 (79-97) fl MCH 28 (28-32) pg MCHC 33 (30-34) % RDW 13.6 (13.2-15.2) % Plt Count 226 (140-440) K/mm3 Lymph % (Auto) 36.6 H (13.4-35.0) % [place] % (Auto) 10.1 H (0.0-7.3) % Eos % (Auto) 1.7 (0.0-4.3) % Baso % (Auto) 0.4 (0.0-1.8) % Lymph # 2.8 (1.2-5.4) K/mm3 [place] # 0.8 (0.0-0.8) K/mm3 Eos # 0.1 (0.0-0.4) K/mm3 Baso # 0.0 (0.0-0.1) K/mm3 Seg Neutrophils % 51.2 (40.0-70.0) % Seg Neutrophils # 3.9 (1.8-7.7) K/mm3 Sodium 135 L (137-145) mmol/L Potassium 4.1 (3.6-5.0) mmol/L Chloride 98.7 (98-107) mmol/L Carbon Dioxide 22 (22-30) mmol/L Anion Gap 18 mmol/L BUN 12 (7-17) mg/dL Creatinine 0.8 (0.7-1.2) mg/dL Estimated GFR > 60 ml/min BUN/Creatinine Ratio 15 % Glucose 398 H (65-100) mg/dL POC Glucose 331 H (70-105) Calcium 8.8 (8.4-10.2) mg/dL Troponin T < 0.010 (0.00-0.029) ng/mL 05/16/19 05/16/19 Range/Units 02:04 02:04 WBC (4.5-11.0) K/mm3 RBC (3.65-5.03) M/mm3 Hgb (10.1-14.3) gm/dl Hct (30.3-42.9) % MCV (79-97) fl MCH (28-32) pg MCHC (30-34) % RDW (13.2-15.2) % Plt Count (140-440) K/mm3 Lymph % (Auto) (13.4-35.0) % [place] % (Auto) (0.0-7.3) % Eos % (Auto) (0.0-4.3) % Baso % (Auto) (0.0-1.8) % Lymph # (1.2-5.4) K/mm3 [place] # (0.0-0.8) K/mm3 Eos # (0.0-0.4) K/mm3 Baso # (0.0-0.1) K/mm3 Seg Neutrophils % (40.0-70.0) % Seg Neutrophils # (1.8-7.7) K/mm3 Sodium (137-145) mmol/L Potassium (3.6-5.0) mmol/L Chloride (98-107) mmol/L Carbon Dioxide (22-30) mmol/L Anion Gap mmol/L BUN (7-17) mg/dL Creatinine (0.7-1.2) mg/dL Estimated GFR ml/min BUN/Creatinine Ratio % Glucose (65-100) mg/dL POC Glucose 282 H (70-105) Calcium (8.4-10.2) mg/dL Troponin T < 0.010 (0.00-0.029) ng/mL - EKG Data -: EKG Interpreted by Me EKG shows normal: sinus rhythm, ST-T waves (no stemi) Rate: normal - Radiology Data Radiology results: report reviewed CHEST 1 VIEW INDICATION: Chest Pain. COMPARISON: 04/17/2019. FINDINGS: Support devices: None. Heart: Within normal limits. Lungs/Pleura: No acute air space or interstitial disease. Additional findings: None. IMPRESSION: No acute abnormality. - Medical Decision Making Once again admission was offered for cardiac evaluation and stress testing given patient's risk factors and continued dyspnea and also patient complains of increased tiredness and fatigue. Patient refuses admission and therefore be signing out AGAINST MEDICAL ADVICE. Outpatient allergy follow-up provided for outpatient stress testing. Patient's medications will be refilled. She'll also be prescribed GERD medication and encouraged to follow-up primary care doctor for further management. She has a PERC PE Score of 0 and therefore a ddimer was not obtained. elevated glucose trending downward without treatment, no dka - Differential Diagnosis mi, unstable angina, pe, pneumonia, bronchitis, anxiety, reactive airway dz Critical Care Time: No Critical care attestation.: If time is entered above; I have spent that time in minutes in the direct care of this critically ill patient, excluding procedure time. ED Disposition Clinical Impression: Chest congestion, SOB (shortness of breath), Chest pain, Diabetes, HTN (hypertension), Nonadherence to medication, GERD (gastroesophageal reflux disease) Disposition: LEFT AGAINST MED ADVICE Is pt being admited?: No Does the pt Need Aspirin: No Condition: Stable Instructions: Chest Pain (ED), Diabetes Mellitus Type 2 in Adults (ED), Hypertension (ED), Gastroesophageal Reflux Disease (ED) Additional Instructions: Take the medication as prescribed. Follow-up with your doctor or doctor/clinic provided. Return if symptoms worsen as indicated by your discharge instructions. Prescriptions: metFORMIN [Glucophage] 500 mg PO BID #60 tablet Insulin Glargine,Hum.rec.anlog [Lantus Solostar] 60 unit SQ QHS 30 Days insuln.pen guaiFENesin/DEXTROMETHORPHAN [Mucinex DM ER 600-30 mg TAB] 1 each PO BID PRN #20 tab.er.12h PRN Reason: Cough PARoxetine [Paxil] 20 mg PO DAILY #30 tablet Famotidine [Pepcid] 20 mg PO BID #30 tablet ALBUTEROL Inhaler (OR & NICU) [ProAir HFA Inhaler] 2 puff IH QID PRN #1 inhalation PRN Reason: Shortness Of Breath Lisinopril [Zestril TAB] 5 mg PO QDAY #30 tablet Referrals: [facility] [Provider Group] - 7-10 days (Gi doctor ) ADDY WALKER MD [Staff Physician] - 3-5 Days [facility] MARIO MD [Primary Care Provider] - 3-5 Days Forms: AMA Form Time of Disposition: 02:52
[2019-05-16] MEDS ORDERED: guaiFENesin ER 600 MG TAB PO ONE (02:00)
[2019-05-16 03:23] VITALS: BP 141/65
== END 2019-05-16 03:22 | disposition left against medical advice (07) ==
LOC: ED 22:31
DX: K21.9 Gastro-esophageal reflux disease without esophagitis (principal); R07.89 Other chest pain; R06.02 Shortness of breath; I10 Essential (primary) hypertension; E11.9 Type 2 diabetes mellitus without complications
CPT/HCPCS: 36415; 71045; 80048; 82962; 84484; 85025; 93005; 93010

== ENCOUNTER 2019-05-19 05:53 | Inpatient (IN) | payer OTHER ==
[2019-05-19] MEDS ORDERED: ASPIRIN 325 MG TAB PO ONE (06:17)
--- NOTE | 2019-05-19 06:51 | XRay Report ---
CHEST 1 VIEW INDICATION: Chest Pain. COMPARISON: 05/15/2019. FINDINGS: Support devices: None. Heart: Within normal limits. Lungs/Pleura: No acute air space or interstitial disease. Additional findings: None. IMPRESSION: No acute abnormality. Signer Name: Sravan Dean MD Signed: 05/19/2019 6:47 AM Workstation Name: [id number]
[2019-05-19 07:47] LABS: Basophils % (Auto) 0.3 % (0.0-1.8); Eosinophils % (Auto) 0.4 % (0.0-4.3); Hematocrit 34.6 % (30.3-42.9); Hemoglobin 11.5 gm/dl (10.1-14.3); Lymphocytes # (Auto) 1.6 K/mm3 (1.2-5.4); Lymphocytes % (Auto) 14.3 % (13.4-35.0); Mean Corpuscular HGB Conc 33 % (30-34); Mean Corpuscular Volume 84 fl (79-97); Monocytes # (Auto) 0.9 K/mm3 (0.0-0.8); Platelet Count 257 K/mm3 (140-440); Red Blood Count 4.13 M/mm3 (3.65-5.03); Red Cell Distribution Width 13.8 % (13.2-15.2)
[2019-05-19 07:48] LABS: Alanine Aminotransferase 19 units/L (7-56); Albumin 3.6 g/dL (3.9-5)
[2019-05-19] MEDS ORDERED: FAMOTIDINE 20 MG/2 ML INJ IV ONE (07:48)
[2019-05-19] MEDS ORDERED: ONDANSETRON 4 MG/2 ML INJ IV ONE (07:48)
[2019-05-19] MEDS ORDERED: fentaNYL 100 MCG/2 ML INJ IV ONE (07:48)
[2019-05-19] MEDS ORDERED: NITROGLYCERIN 2% OINT 1 GM TP ONE (07:48)
[2019-05-19 07:49] LABS: Bilirubin,Direct < 0.2 mg/dL (0-0.2)
--- NOTE | 2019-05-19 07:56 | Emergency Department Report ---
HPI - General Chief Complaint: Chest Pain Time Seen by Provider: 05/19/19 07:47 - HPI HPI: Room 7 The patient is a 48-year-old female presenting with chief complaint of chest pain. The patient states for the past 3 days she's had intermittent pain in her chest described as burning and pressure in nature. Patient states she has shortness of breath and nausea this chest pressure. Patient currently gives her chest pressure score of 9/10. Patient denies suicidal ideation. Patient states her last stress test occurred over 10 years ago but she's never had a cardiac catheterization Location: [See above] Duration: [See above] Quality: [See above] Severity: [See above] Timing: [See above] Context: [See above] Modifying factors: [See above] Associated signs and symptoms: [see above] ED Past Medical Hx - Past Medical History Previous Medical History?: Yes Hx Hypertension: Yes Hx Diabetes: Yes Hx Psychiatric Treatment: Yes (Depression) Additional medical history: h pylori- not treated as of 11-16 - Surgical History Additional Surgical History: Tubal ligation - Family History Family history: no significant - Social History Smoking Status: Never Smoker Substance Use Type: None (denies illicit drug use) - Medications Home Medications: Home Medications Medication Instructions Recorded Confirmed Last Taken Type Insulin Glargine,Hum.rec.anlog 60 unit SQ QHS 30 Days insuln.pen 05/16/19 Unknown Rx [Lantus Solostar] Lisinopril [Zestril TAB] 5 mg PO QDAY #30 tablet 05/16/19 Unknown Rx PARoxetine [Paxil] 20 mg PO DAILY #30 tablet 05/16/19 Unknown Rx ED Review of Systems ROS: Stated complaint: CHEST PAIN W/PRESSURE Other details as noted in HPI Constitutional: diaphoresis Eyes: denies: eye pain ENT: throat pain Respiratory: shortness of breath Cardiovascular: chest pain Endocrine: no symptoms reported Gastrointestinal: nausea. denies: vomiting Genitourinary: denies: dysuria Musculoskeletal: denies: back pain Neurological: denies: headache Psychiatric: denies: suicidal thoughts Physical Exam - Physical Exam Vital Signs: Vital Signs 05/19/19 05:57 Temperature 97.6 F Pulse Rate 90 Respiratory 18 Rate Blood Pressure 191/89 O2 Sat by Pulse 97 Oximetry Physical Exam: GENERAL: The patient is well-developed well-nourished female sitting on stretcher not appearing to be in acute distress. [] HEENT: Normocephalic. Atraumatic. Extraocular motions are intact. Patient has moist mucous membranes. NECK: Supple. Trachea Midline CHEST/LUNGS: Clear to auscultation. There is no respiratory distress noted. HEART/CARDIOVASCULAR: Regular. There is no tachycardia. There is no gallop rub or murmur. ABDOMEN: Abdomen is soft, nontender. Patient has normal bowel sounds. There is no abdominal distention. SKIN: There is no rash. There is no diaphoresis. NEURO: The patient is awake, alert, and oriented. The patient is cooperative. The patient has normal speech and gait. MUSCULOSKELETAL: There is no evidence of acute injury. ED Course Vital Signs 05/19/19 05:57 Temperature 97.6 F Pulse Rate 90 Respiratory 18 Rate Blood Pressure 191/89 O2 Sat by Pulse 97 Oximetry ED Medical Decision Making - Lab Data Result diagrams: 05/19/19 07:23 Laboratory Tests 05/19/19 05/19/19 05/19/19 07:23 07:23 07:23 WBC 10.9 RBC 4.13 Hgb 11.5 Hct 34.6 MCV 84 MCH 28 MCHC 33 RDW 13.8 Plt Count 257 Lymph % (Auto) 14.3 [place] % (Auto) 8.0 H Eos % (Auto) 0.4 Baso % (Auto) 0.3 Lymph # 1.6 [place] # 0.9 H Eos # 0.0 Baso # 0.0 Seg Neutrophils % 77.0 H Seg Neutrophils # 8.4 H Sodium 130 L Potassium 4.4 Chloride 96.0 L Carbon Dioxide 20 L Anion Gap 18 BUN 12 Creatinine 0.6 L Estimated GFR > 60 BUN/Creatinine Ratio 20 Glucose 325 H Calcium 8.8 Total Bilirubin 0.60 Direct Bilirubin < 0.2 Indirect Bilirubin 0.4 AST 22 ALT 19 Alkaline Phosphatase 65 Troponin T < 0.010 Total Protein 7.4 Albumin 3.6 L Albumin/Globulin Ratio 0.9 Lipase 26 - EKG Data -: EKG Interpreted by Me EKG shows normal: sinus rhythm Rate: normal - EKG Data When compared to previous EKG there are: previous EKG unavailable Interpretation: normal EKG - Radiology Data Radiology results: report reviewed (chest x-ray), image reviewed (chest x-ray) interpreted by me: Chest x-ray-no focal infiltrate, no pneumothorax [facility] [address] [place] [address] XRay Report Signed Patient: AYAKA LOGAN MR#: [id number] : 1970 Acct:[id number] Age/Sex: 48 / F ADM Date: 05/19/19 Loc: ED Attending Dr: Ordering Physician: NORMAN STILL MD Date of Service: 05/19/19 Procedure(s): XR chest 1V ap Accession Number(s): [id number] cc: ED MD CHEKO Fluoro Time In Minutes: CHEST 1 VIEW INDICATION: Chest Pain. COMPARISON: 05/15/2019. FINDINGS: Support devices: None. Heart: Within normal limits. Lungs/Pleura: No acute air space or interstitial disease. Additional findings: None. IMPRESSION: No acute abnormality. Signer Name: Sravan Dean MD Signed: 05/19/2019 6:47 AM Workstation Name: [id number] Transcribed By: ES Dictated By: Sravan Dean MD Electronically Authenticated By: Sravan Dean MD Signed Date/Time: 05/19/19646 DD/ 6 TD/TT: - Differential Diagnosis ACS, anxiety, GERD, pericarditis Critical care attestation.: If time is entered above; I have spent that time in minutes in the direct care of this critically ill patient, excluding procedure time. ED Disposition Clinical Impression: Chest pain Disposition: -09 OP ADMIT IP TO THIS HOSP Is pt being admited?: Yes Does the pt Need Aspirin: Yes Condition: Fair Instructions: Chest Pain (ED) Referrals: PRIMARY CAREMD [Primary Care Provider] - 3-5 Days Time of Disposition: 08:30 (hospitalist paged)
[2019-05-19 08:04] LABS: BUN/Creatinine Ratio 20; Blood Urea Nitrogen 12 mg/dL (7-17); Calcium 8.8 mg/dL (8.4-10.2); Hemolysis Index 47
[2019-05-19] MEDS ORDERED: MORPHINE 4 MG/1 ML INJ IV PRN (08:43)
[2019-05-19] MEDS ORDERED: ACETAMINOPHEN 325 MG TAB PO PRN (08:43)
[2019-05-19] MEDS ORDERED: oxyCODONE /ACETAMINOPHEN 5-325MG TAB PO PRN (08:43)
[2019-05-19] MEDS ORDERED: DEXTROSE 50% IN WATER (25GM) 50 ML SYRINGE IV PRN (08:48)
[2019-05-19] MEDS ORDERED: NITROGLYCERIN 0.4 MG TAB SUBL SL PRN (08:51)
[2019-05-19] MEDS ORDERED: hydrALAZINE 20 MG/1 ML INJ IV PRN (08:52)
[2019-05-19] MEDS ORDERED: SODIUM CHLORIDE 0.9% 1000 ML 1,000 ML ONE (09:42)
[2019-05-19] MEDS ORDERED: MORPHINE 2 MG/1 ML INJ IV PRN (09:46)
[2019-05-19] MEDS ORDERED: SODIUM CHLORIDE 0.9% 1000 ML 1,000 ML IV ONE (10:00)
--- NOTE | 2019-05-19 10:37 | Consultation ---
History of Present Illness Consult date: 05/19/19 Consult reason: chest pain History of present illness: The patient presented to the emergency department with a three-day history of burning substernal chest pain sometimes radiating to her left upper extremity and associated with nausea and shortness of breath. Past History Past Medical History: diabetes, other (anxiety disorder) Past Surgical History: Other (tubal ligation) Social history: denies: smoking, alcohol abuse Family history: denies: CAD Medications and Allergies Allergies Allergy/AdvReac Type Severity Reaction Status Date / Time No Known Allergies Allergy Verified 02/06/18 02:34 Home Medications Medication Instructions Recorded Confirmed Last Taken Type Insulin Glargine,Hum.rec.anlog 60 unit SQ QHS 30 Days insuln.pen 05/16/19 05/19/19 Unknown Rx [Lantus Solostar] Lisinopril [Zestril TAB] 5 mg PO QDAY #30 tablet 05/16/19 05/19/19 05/18/19 Rx PARoxetine [Paxil] 20 mg PO DAILY #30 tablet 05/16/19 05/19/19 05/18/19 Rx Active Meds: Active Medications Acetaminophen (Tylenol) 650 mg PO Q4HR PRN PRN Reason: Pain MILD(1-3)/Fever >100.5/MCDANIEL Dextrose (D50w (25gm) Syringe) 50 ml IV Q30MIN PRN; Protocol PRN Reason: Hypoglycemia Hydralazine HCl (Apresoline) 20 mg IV Q4HR PRN PRN Reason: Blood Pressure Sodium Chloride (Nacl 0.9% 1000 Ml) 1,000 mls @ 999 mls/hr IV BOLUS ONE Stop: 05/19/19 11:00 Last Admin: 05/19/19 10:05 Dose: 999 mls/hr Documented by: Sodium Chloride (Nacl 0.9% 1000 Ml) 1,000 mls @ 125 mls/hr IV DIRECT DHARA Insulin Glargine (Lantus) 15 units SUB-Q BID DHARA Insulin Human Lispro (Humalog) 0 unit SUB-Q ACHS DHARA; Protocol Lisinopril (Zestril) 40 mg PO QDAY DHARA Morphine Sulfate (Morphine) 2 mg IV Q4HR PRN PRN Reason: Pain , Severe (7-10) Nitroglycerin (Nitrostat) 0.4 mg SL .Q5MIN PRN PRN Reason: Chest Pain Ondansetron HCl (Zofran) 4 mg IV Q8H PRN PRN Reason: Nausea And Vomiting Oxycodone/Acetaminophen (Percocet 5/325) 1 tab PO Q6HR PRN PRN Reason: Pain, Moderate (4-6) Paroxetine HCl (Paxil) 20 mg PO DAILY DHARA Sodium Chloride (Sodium Chloride Flush Syringe 10 Ml) 10 ml IV BID DHARA Sodium Chloride (Sodium Chloride Flush Syringe 10 Ml) 10 ml IV PRN PRN PRN Reason: LINE FLUSH Zolpidem Tartrate (Ambien) 5 mg PO QHS PRN PRN Reason: Insomnia Review of Systems Constitutional: no fever, no chills Ears, nose, mouth and throat: no ear pain, no ear discharge, no sore throat Cardiovascular: chest pain, no orthopnea, no palpitations, no lightheadedness, no shortness of breath Respiratory: shortness of breath, no cough, no hemoptysis Gastrointestinal: nausea, no abdominal pain, no vomiting, no diarrhea, no constipation Genitourinary Female: no dysuria, no urinary frequency Rectal: no pain, no bleeding Musculoskeletal: no neck stiffness, no neck pain, no myalgias Integumentary: no rash, no pruritis Neurological: no weakness, no parathesias, no headaches Endocrine: no cold intolerance, no heat intolerance Hematologic/Lymphatic: no easy bruising, no easy bleeding Allergic/Immunologic: no urticaria, no wheezing Physical Examination Vital Signs Temp Pulse Resp BP Pulse Ox 97.6 F 90 18 191/89 97 05/19/19 05:57 05/19/19 05:57 05/19/19 05:57 05/19/19 05:57 05/19/19 05:57 General appearance: no acute distress HEENT: Positive: EOMI, Normocephaly, Mucus Membranes Moist Neck: Positive: neck supple, trachea midline Cardiac: Positive: Reg Rate and Rhythm, S1/S2 Lungs: Positive: clear to auscultation Neuro: Positive: Grossly Intact Abdomen: Positive: Soft, Active Bowel Sounds. Negative: Tender Skin: Positive: Clear. Negative: Rash Musculoskeletal: Normal Range of Motion Extremities: Present: normal. Absent: edema Results 05/19/19 07:23 05/19/19 07:23 Cardiac Enzymes 05/19/19 Range/Units 07:23 AST 22 (5-40) units/L CBC 05/19/19 Range/Units 07:23 WBC 10.9 (4.5-11.0) K/mm3 RBC 4.13 (3.65-5.03) M/mm3 Hgb 11.5 (10.1-14.3) gm/dl Hct 34.6 (30.3-42.9) % Plt Count 257 (140-440) K/mm3 Lymph # 1.6 (1.2-5.4) K/mm3 [place] # 0.9 H (0.0-0.8) K/mm3 Eos # 0.0 (0.0-0.4) K/mm3 Baso # 0.0 (0.0-0.1) K/mm3 Comprehensive Metabolic Panel 05/19/19 05/19/19 Range/Units 07:23 07:23 Sodium 130 L (137-145) mmol/L Potassium 4.4 (3.6-5.0) mmol/L Chloride 96.0 L (98-107) mmol/L Carbon Dioxide 20 L (22-30) mmol/L BUN 12 (7-17) mg/dL Creatinine 0.6 L (0.7-1.2) mg/dL Glucose 325 H (65-100) mg/dL Calcium 8.8 (8.4-10.2) mg/dL Direct Bilirubin < 0.2 (0-0.2) mg/dL Indirect Bilirubin 0.4 mg/dL AST 22 (5-40) units/L ALT 19 (7-56) units/L Alkaline Phosphatase 65 (35-129) units/L Total Protein 7.4 (6.3-8.2) g/dL Albumin 3.6 L (3.9-5) g/dL - Imaging and Cardiology EKG: image reviewed EKG interpretations - Telemetry EKG Rhythm: Sinus Rhythm - EKG Sinus rhythms and dysrhythmias: sinus rhythm Assessment and Plan Initiate HARI inhibitor or ARB for her BP. Schedule Lexiscan stress MPI this morning. - Patient Problems (1) Chest pain Current Visit: Yes Status: Acute (2) HTN (hypertension) Current Visit: Yes Status: Acute (3) Diabetes Current Visit: Yes Status: Chronic Qualifiers: Diabetes mellitus type: type 2
[2019-05-19] MEDS: INSULIN GLARGINE 100 UNITS/ML SUB-Q SCH ×2 (11:02→22:41)
[2019-05-19] MEDS: PARoxetine 20 MG TAB PO SCH (11:02)
[2019-05-19] MEDS: LISINOPRIL 40 MG TAB PO SCH (11:03)
[2019-05-19] MEDS ORDERED: REGADENOSON 0.4 MG/5 ML INJ IV ONE ×2 (11:55→11:56)
[2019-05-19] MEDS ORDERED: SIMETHICONE 80 MG CHEW TAB PO PRN (12:30)
--- NOTE | 2019-05-19 12:30 | History and Physical Report ---
History of Present Illness Date of examination: 05/19/19 Date of admission: 05/19/19 08:32 Chief complaint: Chest pain History of present illness: Patient is a 48 year old female with a history of diabetes mellitus type 2 who presented to the ED on account of 3 days history of midsternal chest pressure without pain. She has associated shortness of breath, palpitation, headaches, nausea without vomiting and dizziness. She denies cough, fever, chills, leg swelling, orthopnea, PND, syncope or loss of consciousness. She has a remote history of stress test which was negative. Past History Past Medical History: diabetes, other (anxiety disorder) Past Surgical History: Other (tubal ligation) Social history: no significant social history (she denies tobacco, alcohol or i llicit drug use) Family history: CAD (grandmother had heart attack in her 60s) Medications and Allergies Allergies Allergy/AdvReac Type Severity Reaction Status Date / Time No Known Allergies Allergy Verified 02/06/18 02:34 Home Medications Medication Instructions Recorded Confirmed Last Taken Type Insulin Glargine,Hum.rec.anlog 60 unit SQ QHS 30 Days insuln.pen 05/16/19 05/19/19 Unknown Rx [Lantus Solostar] Lisinopril [Zestril TAB] 5 mg PO QDAY #30 tablet 05/16/19 05/19/19 05/18/19 Rx PARoxetine [Paxil] 20 mg PO DAILY #30 tablet 05/16/19 05/19/19 05/18/19 Rx Active Meds: Active Medications Acetaminophen (Tylenol) 650 mg PO Q4HR PRN PRN Reason: Pain MILD(1-3)/Fever >100.5/MCDANIEL Dextrose (D50w (25gm) Syringe) 50 ml IV Q30MIN PRN; Protocol PRN Reason: Hypoglycemia Sodium Chloride (Nacl 0.9% 1000 Ml) 1,000 mls @ 125 mls/hr IV DIRECT DHARA Insulin Glargine (Lantus) 15 units SUB-Q BID DHARA Last Admin: 05/19/19 11:02 Dose: 15 units Documented by: Insulin Human Lispro (Humalog) 0 unit SUB-Q ACHS DHARA; Protocol Lisinopril (Zestril) 40 mg PO QDAY [facility] Last Admin: 05/19/19 11:03 Dose: Not Given Documented by: Morphine Sulfate (Morphine) 2 mg IV Q4HR PRN PRN Reason: Pain , Severe (7-10) Nitroglycerin (Nitrostat) 0.4 mg SL .Q5MIN PRN PRN Reason: Chest Pain Ondansetron HCl (Zofran) 4 mg IV Q8H PRN PRN Reason: Nausea And Vomiting Oxycodone/Acetaminophen (Percocet 5/325) 1 tab PO Q6HR PRN PRN Reason: Pain, Moderate (4-6) Paroxetine HCl (Paxil) 20 mg PO DAILY [facility] Last Admin: 05/19/19 11:02 Dose: 20 mg Documented by: Sodium Chloride (Sodium Chloride Flush Syringe 10 Ml) 10 ml IV BID [facility] Last Admin: 05/19/19 11:02 Dose: 10 ml Documented by: Sodium Chloride (Sodium Chloride Flush Syringe 10 Ml) 10 ml IV PRN PRN PRN Reason: LINE FLUSH Zolpidem Tartrate (Ambien) 5 mg PO QHS PRN PRN Reason: Insomnia Review of Systems All systems: negative (all other systems reviewed with the patient and are negative unless otherwise stated above) Exam - Constitutional Vitals: Temp Pulse Resp BP Pulse Ox 98 F 73 18 129/61 95 05/19/19 07:53 05/19/19 08:45 05/19/19 09:47 05/19/19 10:00 05/19/19 08:45 General appearance: Present: no acute distress, obese - EENT Eyes: Present: PERRL, EOM intact ENT: hearing intact, clear oral mucosa - Neck Neck: Present: supple - Respiratory Respiratory effort: normal Respiratory: bilateral: CTA - Cardiovascular Rhythm: regular Heart Sounds: Present: S1 & S2. Absent: rub, click - Extremities Extremities: pulses symmetrical, No edema Peripheral Pulses: within normal limits - Abdominal General gastrointestinal: Present: soft, non-tender, non-distended, normal bowel sounds Female genitourinary: Present: deferred - Integumentary Integumentary: Present: clear, warm, dry - Musculoskeletal Musculoskeletal: gait normal, strength equal bilaterally - Psychiatric Psychiatric: appropriate mood/affect, intact judgment & insight - Neurologic Neurologic: CNII-XII intact, moves all extremities Results - Labs CBC & Chem 7: 05/19/19 07:23 05/19/19 07:23 Labs: Laboratory Last Values WBC 10.9 K/mm3 (4.5-11.0) 05/19/19 07:23 RBC 4.13 M/mm3 (3.65-5.03) 05/19/19 07:23 Hgb 11.5 gm/dl (10.1-14.3) 05/19/19 07:23 Hct 34.6 % (30.3-42.9) 05/19/19 07:23 MCV 84 fl (79-97) 05/19/19 07:23 MCH 28 pg (28-32) 05/19/19 07:23 MCHC 33 % (30-34) 05/19/19 07:23 RDW 13.8 % (13.2-15.2) 05/19/19 07:23 Plt Count 257 K/mm3 (140-440) 05/19/19 07:23 Lymph % (Auto) 14.3 % (13.4-35.0) 05/19/19 07:23 [place] % (Auto) 8.0 % (0.0-7.3) H 05/19/19 07:23 Eos % (Auto) 0.4 % (0.0-4.3) 05/19/19 07:23 Baso % (Auto) 0.3 % (0.0-1.8) 05/19/19 07:23 Lymph # 1.6 K/mm3 (1.2-5.4) 05/19/19 07:23 [place] # 0.9 K/mm3 (0.0-0.8) H 05/19/19 07:23 Eos # 0.0 K/mm3 (0.0-0.4) 05/19/19 07:23 Baso # 0.0 K/mm3 (0.0-0.1) 05/19/19 07:23 Seg Neutrophils % 77.0 % (40.0-70.0) H 05/19/19 07:23 Seg Neutrophils # 8.4 K/mm3 (1.8-7.7) H 05/19/19 07:23 Sodium 130 mmol/L (137-145) L 05/19/19 07:23 Potassium 4.4 mmol/L (3.6-5.0) 05/19/19 07:23 Chloride 96.0 mmol/L (98-107) L 05/19/19 07:23 Carbon Dioxide 20 mmol/L (22-30) L 05/19/19 07:23 Anion Gap 18 mmol/L 05/19/19 07:23 BUN 12 mg/dL (7-17) 05/19/19 07:23 Creatinine 0.6 mg/dL (0.7-1.2) L 05/19/19 07:23 Estimated GFR > 60 ml/min 05/19/19 07:23 BUN/Creatinine Ratio 20 % 05/19/19 07:23 Glucose 325 mg/dL (65-100) H 05/19/19 07:23 POC Glucose 268 (70-105) H 05/19/19 10:26 Calcium 8.8 mg/dL (8.4-10.2) 05/19/19 07:23 Total Bilirubin 0.60 mg/dL (0.1-1.2) 05/19/19 07:23 Direct Bilirubin < 0.2 mg/dL (0-0.2) 05/19/19 07:23 Indirect Bilirubin 0.4 mg/dL 05/19/19 07:23 AST 22 units/L (5-40) 05/19/19 07:23 ALT 19 units/L (7-56) 05/19/19 07:23 Alkaline Phosphatase 65 units/L (35-129) 05/19/19 07:23 Troponin T < 0.010 ng/mL (0.00-0.029) 05/19/19 09:21 Total Protein 7.4 g/dL (6.3-8.2) 05/19/19 07:23 Albumin 3.6 g/dL (3.9-5) L 05/19/19 07:23 Albumin/Globulin Ratio 0.9 % 05/19/19 07:23 Lipase 26 units/L (13-60) 05/19/19 07:23 Assessment and Plan Assessment and plan: Acute chest pain, rule out ACS -Serial troponin levels negative -Status post stress test which was abnormal -for [facility] in a.m. DM2 with hyperglycemia -on SSI and Lantus Hyponatremia -on IVF, will monitor Metabolic acidosis -on IVF, will monitor Elevated BP without prior diagnosis of hypertension -pt denies ever being diagnosed with hypertension. She stated that she takes lisinopril for kidney protection -BP improved, will monitor DVT prophylaxis: SCD Time spent: 35 minutes Patient admitted to inpatient status Disposition: For [facility] in am
--- NOTE | 2019-05-19 12:55 | Treadmill Report ---
STUDY: Lexiscan stress test REASON FOR STUDY: Chest pain. STRESS TEST PROTOCOL: The patient received 0.4 mg of Lexiscan intravenously over 10 seconds. Tc-99m Tetrofosmin was subsequently injected. Baseline ECG, normal sinus rhythm. Lexiscan ECG, no ischemic changes. No chest pain. No arrhythmias. IMPRESSION: Electrocardiographically negative stress test. Nuclear imaging report to follow. JOB# [id number] CECIL/NTS
[2019-05-19] MEDS: ONDANSETRON 4 MG/2 ML INJ IV PRN (15:01)
[2019-05-19] MEDS: SODIUM CHLORIDE 0.9% 1000 ML 1,000 ML IV SCH ×2 (15:02→22:42)
--- NOTE | 2019-05-19 16:28 | Event Note ---
Date: 05/19/19 S/p lexiscan MPI stress test this AM which showed moderate ischemia. Coronary angiography recommended for definitive diagnosis. Indications, potential risks and benefits of LHC reviewed with pt and she is agreeable to proceed with LHC in AM. NPO after MN. Leonela LITTLEJOHN NP / DR. JI
[2019-05-19] MEDS: INSULIN LISPRO 100 UNIT/ML SUB-Q SCH ×3 (16:35→22:42)
[2019-05-19] MEDS ORDERED: SODIUM CHLORIDE 0.9% 500 ML 500 ML IV SCH (17:00)
--- NOTE | 2019-05-19 21:27 | Treadmill Report ---
THALLIUM REPORT REASON FOR STUDY: Chest pain. IMAGING PROTOCOL: The patient received 10 mCi of technetium Tetrofosmin for rest imaging, and 28 mCi of technetium Tetrofosmin for stress imaging. The patient received 4 mCi of Thallium 201 for rest imaging and 26 mCi of technetium-99 Tetrofosmin for stress imaging. Imaging for all procedures was completed 30-90 minutes following the initial injection of Technetium 99m Tetrofosmin. SPECT imaging in the 180 degree arc was performed in the right anterior oblique projection. Computerized reconstruction of the images was performed for analysis. NUCLEAR IMAGING RESULTS: Normal left ventricular cavity size with no change from stress to rest. Distribution of radionuclide within the left ventricle revealed a small to medium size area of photo-induction involving the inferior and inferoapical region. The degree of photo-induction is moderate. Rest imaging showed partial improvement in this defect. In addition, there is a small area of photo-induction involving the anterior and anteroapical region. The degree of photo-induction is moderate. Rest imaging showed partial improvement in this defect. Gated SPECT imaging revealed normal global LV systolic function with no significant wall motion abnormalities. The calculated left ventricular ejection fraction is 69%. IMPRESSION: Small to medium size, partially reversible inferior and inferoapical defect. Small, partially reversible anterior and anteroapical defect. Normal global left ventricle systolic function with no significant wall motion abnormalities. Ejection fraction 69%. These findings suggest a small area of prior infarction with mild to moderate residual ischemia in the right coronary artery territory. In addition, there is suggestion of a small area of prior infarction with mild residual ischemia in the left anterior descending coronary artery territory. JOB# [id number] CECIL/AG[facility] HOSPITALDamian
[2019-05-19] MEDS ORDERED: ZOLPIDEM 5 MG TAB PO PRN (22:00)
[2019-05-19] MEDS: FAMOTIDINE 20 MG TAB PO SCH (22:41)
[2019-05-20 07:48] LABS: Basophils # (Auto) 0.1 K/mm3 (0.0-0.1); Basophils % (Auto) 0.8 % (0.0-1.8); Eosinophils # (Auto) 0.1 K/mm3 (0.0-0.4); Eosinophils % (Auto) 0.6 % (0.0-4.3); Hematocrit 34.2 % (30.3-42.9); Hemoglobin 11.2 gm/dl (10.1-14.3); Lymphocytes # (Auto) 2.5 K/mm3 (1.2-5.4); Lymphocytes % (Auto) 28.2 % (13.4-35.0); Mean Corpuscular HGB Conc 33 % (30-34); Mean Corpuscular Volume 83 fl (79-97); Monocytes # (Auto) 0.8 K/mm3 (0.0-0.8); Monocytes % (Auto) 9.2 % (0.0-7.3); Platelet Count 250 K/mm3 (140-440); Red Blood Count 4.11 M/mm3 (3.65-5.03); Red Cell Distribution Width 14.1 % (13.2-15.2)
[2019-05-20 08:00] LABS: INR 1.18 (0.87-1.13)
[2019-05-20] MEDS: INSULIN LISPRO 100 UNIT/ML SUB-Q SCH ×2 (08:00→12:04)
[2019-05-20 08:06] LABS: BUN/Creatinine Ratio 14; Blood Urea Nitrogen 7 mg/dL (7-17); Calcium 8.1 mg/dL (8.4-10.2); Chol/HDL Ratio 3.62 %; HDL Cholesterol 43 mg/dL (40-59); Hemolysis Index 21; LDL Cholesterol,Direct 113 mg/dL (50-130)
[2019-05-20] MEDS ORDERED: HEPARIN/NS 5000 UNIT/500ML 1,000 ML IR ONE (08:41)
[2019-05-20] MEDS ORDERED: ASPIRIN EC 325 MG TAB PO ONE ×2 (08:59→10:00)
[2019-05-20] MEDS: MIDAZOLAM 2 MG/2 ML INJ ONE ×2 (09:36→09:40)
[2019-05-20] MEDS: fentaNYL 100 MCG/2 ML INJ ONE ×2 (09:36→09:40)
[2019-05-20] MEDS: LIDOCAINE (2%) 20 MG/1 ML VIAL 20 ML MDV INFILTRATI ONE ×2 (09:36→09:41)
[2019-05-20] MEDS: VERAPAMIL 5 MG/2 ML INJ ONE ×3 (09:37→09:42)
[2019-05-20] MEDS: HEPARIN 10,000 UNITS/10 ML VIAL ONE ×3 (09:38→09:42)
[2019-05-20] MEDS: NITROGLYCERIN SYRINGE 3 ML ONE ×2 (09:39→09:42)
[2019-05-20] MEDS ORDERED: SODIUM CHLORIDE 0.9% 500 ML 500 ML IV SCH (10:00)
--- NOTE | 2019-05-20 10:05 | Progress Note ---
Assessment and Plan Post-cath care. Coronaries patent and normal lv function. Noncardiac chest pain. Patient needs to be more adherent to her diabetic regimen and blood pressure controlled diet and excised. Discussed this in detail with the patient patient's - Patient Problems (1) Abnormal cardiovascular stress test Current Visit: Yes Status: Resolved (2) Chest pain Current Visit: Yes Status: Acute Qualifiers: Chest pain type: unspecified Qualified Code(s): R07.9 - Chest pain, unspecified (3) HTN (hypertension) Current Visit: Yes Status: Acute Qualifiers: Hypertension type: essential hypertension Qualified Code(s): I10 - Essential (primary) hypertension (4) Diabetes Current Visit: Yes Status: Chronic Qualifiers: Diabetes mellitus type: type 1 (5) Nonadherence to medication Current Visit: No Status: Chronic (6) SOB (shortness of breath) Current Visit: No Status: Acute Subjective Date of service: 05/20/19 Principal diagnosis: cp Interval history: cp free this am Objective Vital Signs Temp Pulse Pulse Pulse Resp BP Pulse Ox 05/20/19 07:56 98.6 F 75 18 133/64 98 05/20/19 02:40 98.3 F 71 20 123/62 96 05/19/19 22:52 98.0 F 78 18 141/77 99 05/19/19 22:15 75 75 18 97 05/19/19 19:48 70 05/19/19 19:45 98.0 F 75 18 117/59 97 05/19/19 17:20 69 05/19/19 17:11 98.3 F 76 18 159/70 96 05/19/19 15:39 78 78 98 05/19/19 12:13 168/82 05/19/19 12:11 158/80 05/19/19 12:09 150/80 05/19/19 12:07 155/76 05/19/19 12:05 137/78 05/19/19 12:04 165/86 05/19/19 11:50 124/66 - Physical Examination General: No Apparent Distress HEENT: Positive: EOMI, Normocephaly, Mucus Membranes Moist Neck: Positive: neck supple, trachea midline Cardiac: Positive: Reg Rate and Rhythm Lungs: Positive: clear to auscultation Neuro: Positive: Grossly Intact Abdomen: Positive: Soft, Active Bowel Sounds. Negative: Tender Skin: Positive: Clear. Negative: Rash Musculoskeletal: Normal Range of Motion Extremities: Present: normal. Absent: edema - Labs and Meds Coagulation 05/20/19 Range/Units 07:01 PT 14.9 (12.2-14.9) Sec. INR 1.18 H (0.87-1.13) Lipids 05/20/19 Range/Units 07:01 Triglycerides 115 (2-149) mg/dL Cholesterol 156 (50-199) mg/dL HDL Cholesterol 43 (40-59) mg/dL Cholesterol/HDL Ratio 3.62 % CBC 05/20/19 Range/Units 07:01 WBC 9.0 (4.5-11.0) K/mm3 RBC 4.11 (3.65-5.03) M/mm3 Hgb 11.2 (10.1-14.3) gm/dl Hct 34.2 (30.3-42.9) % Plt Count 250 (140-440) K/mm3 Lymph # 2.5 (1.2-5.4) K/mm3 [place] # 0.8 (0.0-0.8) K/mm3 Eos # 0.1 (0.0-0.4) K/mm3 Baso # 0.1 (0.0-0.1) K/mm3 Comprehensive Metabolic Panel 05/20/19 Range/Units 07:01 Sodium 139 D (137-145) mmol/L Potassium 4.0 (3.6-5.0) mmol/L Chloride 105.2 (98-107) mmol/L Carbon Dioxide 22 (22-30) mmol/L BUN 7 (7-17) mg/dL Creatinine 0.5 L (0.7-1.2) mg/dL Glucose 192 H (65-100) mg/dL Calcium 8.1 L (8.4-10.2) mg/dL - Imaging and Cardiology EKG: image reviewed Cardiac cath: report reviewed (lt main patent, lad patent lcx patent rca patent mid mild luminal irregularities and normal lv function ) - Telemetry EKG Rhythm: Sinus Rhythm - EKG Sinus rhythms and dysrhythmias: sinus rhythm
[2019-05-20] MEDS: FAMOTIDINE 20 MG TAB PO SCH (11:04)
[2019-05-20] MEDS: PARoxetine 20 MG TAB PO SCH (11:05)
[2019-05-20] MEDS: LISINOPRIL 40 MG TAB PO SCH (11:10)
[2019-05-20 11:11] VITALS: BP 139/78
--- NOTE | 2019-05-20 11:17 | Cardiac Catherization Report ---
LEFT HEART CATHETERIZATION PROCEDURE DONE BY: Kenton Busby MD CLINICAL INFORMATION: This is a 48-year-old female with uncontrolled diabetes, morbid obesity, hypertension, presents with chest pain with abnormal stress test, here for a left heart catheterization done with moderate sedation. Total sedation time was 10 minutes, started 9:40 a.m. and finished at 10:50 a.m. Procedure was done via the right radial artery, sterile technique, local anesthesia, 6-[place] radial sheath inserted. Left system engaged with JL3.5 catheter. Left main is large and patent, bifurcates into medium caliber LAD. It is patent with mild tortuosity. Diagonal 1 is a medium caliber and is patent. Diagonal 2 is small caliber and is patent. RCA patent medium to large caliber and patent and bifurcates into medium caliber OM1 and OM2 that are patent. RCA engaged with JR4, is a large dominant vessel, patent with mild luminal irregularities in the midsection. Distal is patent. PDA and PLV are medium caliber and is patent. LV gram in CRISTAL and CERRATO view shows normal LV function, LVEDP 24 mmHg, LV is 132, aortic is 120/67. No gradient across the aortic valve on pullback. The 5-[place] catheters all taken over guidewire; 6-[place] radial sheath was discontinued. Radial band applied. No hematoma, no bleeding. SUMMARY: 1. Left main patent, LAD patent, circumflex patent, OM1 and OM2 patent. RCA large, dominant, patent with mild irregularities. Normal LV function. 2. The patient was done with normal LV function. The patient explained the procedure in detail. JOB# [id number] JOHNSON/AGUSTÍN MILES
[2019-05-20] MEDS: INSULIN GLARGINE 100 UNITS/ML SUB-Q SCH (12:03)
--- NOTE | 2019-05-20 13:21 | Discharge Summary ---
Providers - Providers Date of Admission: 05/19/19 08:32 Date of discharge: 05/20/19 Attending physician: JOSE MANUEL SERNA 05/19/19 08:43 Consult to Physician [CONS] Routine Comment: Consulting Provider: COURTNEY OVERTON Physician Instructions: Reason For Exam: chest pain 05/20/19 09:59 Consult to Cardiac Rehabilitation [CONS] Routine Reason For Exam: Cardiac Rehab Evaluation Primary care physician: MARINE DESIGNER Hospitalization Reason for admission: Acute chest pain r/o ACS, DM2 with hyperglycemia, Hyponatremia Condition: Stable Procedures: [facility] Hospital course: Final discharge diagnosis: Acute chest pain with abnormal stress test -Serial troponin levels negative -[facility] neg for significant stenosis with normal EF DM2 with hyperglycemia -placed on SSI and Lantus Hyponatremia -s/p IVF, improved Metabolic acidosis -s/p IVF, improved New diagnosis of hypertension Obesity with BMI of 36.9 -lifestyle modification recommended Medication non-compliance -pt counseled Disposition: DC-01 TO HOME OR SELFCARE Time spent for discharge: 38 minutes Core Measure Documentation - Palliative Care Palliative Care/ Comfort Measures: Not Applicable - Core Measures Any of the following diagnoses?: none Exam - Constitutional Vitals: Temp Pulse Resp BP Pulse Ox 98.6 F 67 18 139/78 98 05/20/19 07:56 05/20/19 11:10 05/20/19 07:56 05/20/19 11:10 05/20/19 07:56 General appearance: Present: no acute distress, obese - EENT Eyes: Present: PERRL, EOM intact ENT: hearing intact, clear oral mucosa - Neck Neck: Present: supple, normal ROM - Respiratory Respiratory effort: normal Respiratory: bilateral: CTA - Cardiovascular Rhythm: regular Heart Sounds: Present: S1 & S2. Absent: rub, click - Extremities Extremities: No edema - Abdominal General gastrointestinal: Present: soft, non-tender, non-distended, normal bowel sounds - Integumentary Integumentary: Present: clear, warm, dry - Musculoskeletal Musculoskeletal: gait normal, strength equal bilaterally - Psychiatric Psychiatric: appropriate mood/affect, intact judgment & insight - Neurologic Neurologic: CNII-XII intact, moves all extremities Plan Follow up with: PRIMARY CARE, [Primary Care Provider] - 3-5 Days Prescriptions: Aspirin [Adult Aspirin] 81 mg PO DAILY #30 tablet. Insulin NPH/Regular [NovoLIN 70/30] 25 unit SQ BIDDIAB 30 Days #1 bottle Lisinopril [Zestril TAB] 20 mg PO QDAY #30 tablet
[2019-05-20] MEDS: ONDANSETRON 4 MG/2 ML INJ IV PRN (14:06)
== END 2019-05-20 15:54 | disposition home or self-care (01) | DRG 287 ==
LOC: ED 05:53 → 4A 08:32
PROVIDERS: ADMIT Internal Medicine; ATTEND Internal Medicine
PROC: 4A023N7 Measurement of Cardiac Sampling and Pressure, Left Heart, Percutaneous Approach (ICD-10-PCS; principal; 2019-05-20)
PROC: B2111ZZ Fluoroscopy of Multiple Coronary Arteries using Low Osmolar Contrast (ICD-10-PCS; 2019-05-20)
PROC: B2151ZZ Fluoroscopy of Left Heart using Low Osmolar Contrast (ICD-10-PCS; 2019-05-20)
DX: R07.89 Other chest pain (principal); E87.1 Hypo-osmolality and hyponatremia; E87.2 Acidosis; F41.9 Anxiety disorder, unspecified; F32.9 Major depressive disorder, single episode, unspecified; E11.65 Type 2 diabetes mellitus with hyperglycemia; E66.01 Morbid (severe) obesity due to excess calories; Z98.51 Tubal ligation status; Z79.4 Long term (current) use of insulin; Z79.899 Other long term (current) drug therapy; Z82.49 Family history of ischemic heart disease and other diseases of the circulatory system; Z91.14 Patient's other noncompliance with medication regimen; Z68.36 Body mass index [BMI] 36.0-36.9, adult
CPT/HCPCS: 36415; 71045; 78452; 80048; 80061; 80076; 82962; 83036; 83690; 84484; 85025; 85610; 93005; 93010; 93017; 93458; G0378; A9502; C1894; J1644; J1815; J2250; J2405; J2785; J3010; J7030; J7040; Q9967

== ENCOUNTER 2019-06-02 14:37 | Emergency (ER) | payer SELFPAY ==
[2019-06-02 15:57] VITALS: BP 128/75
--- NOTE | 2019-06-02 16:52 | XRay Report ---
CHEST 2 VIEWS INDICATION / CLINICAL INFORMATION: cough. COMPARISON: 05/19/2019 FINDINGS: SUPPORT DEVICES: None. HEART / MEDIASTINUM: No significant abnormality. LUNGS / PLEURA: No significant pulmonary or pleural abnormality. No pneumothorax. ADDITIONAL FINDINGS: No significant additional findings. IMPRESSION: 1. No acute findings. Signer Name: Deondre Black MD Signed: 06/02/2019 4:48 PM Workstation Name: [id number]
--- NOTE | 2019-06-02 19:27 | Emergency Department Report ---
ED General Adult HPI - General Chief complaint: Dyspnea/Respdistress Stated complaint: SOB/RT SIDE CHEST/WEAK Time Seen by Provider: 06/02/19 18:18 Source: patient Mode of arrival: Ambulatory Limitations: No Limitations - History of Present Illness Initial comments: 48yo BF states that she was seen weeks ago for chest discomfort and SOB. The pt states that she was admitted and a catheter study was performed and no blockage or abnormalities were found. The pt then states that her visit this evening is for similar symptoms that she previously experienced. Her complaint this encounter is chest discomfort, intermittent SOB, difficulty laying flat and b reathing comfortably in addition to discomfort radiating to her abdomen and arms over the past 1.5 weeks. She then verbalized that sleeping in a seated position gives her relief. -: week(s) Location: chest Radiation: extremity (arms bilaterally), abdomen Severity scale (0 -10): 5 Quality: aching Consistency: constant Improves with: other (sitting upright) Worsens with: other (laying supine) Associated Symptoms: weakness Treatments Prior to Arrival: none - Related Data Previous Rx's Medication Instructions Recorded Last Taken Type PARoxetine [Paxil] 20 mg PO DAILY #30 tablet 05/16/19 05/18/19 Rx Aspirin [Adult Aspirin] 81 mg PO DAILY #30 tablet. 05/20/19 Unknown Rx Insulin NPH/Regular [NovoLIN 70/30] 25 unit SQ BIDDIAB 30 Days #1 05/20/19 Unknown Rx bottle Lisinopril [Zestril TAB] 20 mg PO QDAY #30 tablet 05/20/19 Unknown Rx Allergies Allergy/AdvReac Type Severity Reaction Status Date / Time No Known Allergies Allergy Verified 06/02/19 14:40 ED Review of Systems ROS: Stated complaint: SOB/RT SIDE CHEST/WEAK Other details as noted in HPI Constitutional: weakness Respiratory: shortness of breath Cardiovascular: as per HPI Gastrointestinal: as per HPI Musculoskeletal: as per HPI ED Past Medical Hx - Past Medical History Previous Medical History?: Yes Hx Hypertension: Yes Hx Diabetes: Yes Hx Psychiatric Treatment: Yes (Depression) Additional medical history: h pylori- not treated as of 11-16 - Surgical History Past Surgical History?: Yes Additional Surgical History: Tubal ligation - Social History Smoking Status: Never Smoker Substance Use Type: None - Medications Home Medications: Home Medications Medication Instructions Recorded Confirmed Last Taken Type PARoxetine [Paxil] 20 mg PO DAILY #30 tablet 05/16/19 05/19/19 05/18/19 Rx Aspirin [Adult Aspirin] 81 mg PO DAILY #30 tablet. 05/20/19 Unknown Rx Insulin NPH/Regular [NovoLIN 70/30] 25 unit SQ BIDDIAB 30 Days #1 05/20/19 Unknown Rx bottle Lisinopril [Zestril TAB] 20 mg PO QDAY #30 tablet 05/20/19 Unknown Rx ED Physical Exam - General Limitations: No Limitations General appearance: alert, in no apparent distress - Head Head exam: Present: atraumatic, normocephalic - Eye Eye exam: Present: normal appearance, PERRL, EOMI - ENT ENT exam: Present: normal exam, normal orophraynx - Neck Neck exam: Present: normal inspection, tenderness, meningismus - Respiratory Respiratory exam: Present: normal lung sounds bilaterally, respiratory distress. Absent: wheezes, rales, chest wall tenderness, accessory muscle use - Cardiovascular Cardiovascular Exam: Present: regular rate, normal rhythm, normal heart sounds - GI/Abdominal GI/Abdominal exam: Present: tenderness (RUQ tenderness with palpation), normal bowel sounds. Absent: guarding, rebound - Rectal Rectal exam: Present: deferred - Back Exam Back exam: Present: normal inspection, full ROM. Absent: tenderness, CVA tenderness (R), CVA tenderness (L) - Neurological Exam Neurological exam: Present: alert, altered, oriented X3 - Psychiatric Psychiatric exam: Present: normal affect, normal mood. Absent: depressed - Skin Skin exam: Present: warm, dry, intact ED Course Vital Signs 06/02/19 15:55 Temperature 98.9 F Pulse Rate 87 Respiratory 20 Rate Blood Pressure 128/75 O2 Sat by Pulse 97 Oximetry ED Medical Decision Making - Lab Data Result diagrams: 06/02/19 19:29 06/02/19 19:29 - Radiology Data [facility] [address] [place] [address] Cat Scan Report Signed Patient: AYAKA LOGAN MR#: [id number] : 1970 Acct:[id number] Age/Sex: 48 / F ADM Date: 06/02/19 Loc: ED Attending Dr: Ordering Physician: CARMINA RUIZ PA-C Date of Service: 06/02/19 Procedure(s): CT angio chest Accession Number(s): [id number] cc: CARMINA RUIZ PA-C CT angio chest INDICATION / CLINICAL INFORMATION: elevated d-dimer and chest pain. TECHNIQUE: Precontrast bolus timing images were obtained followed by postcontrast axial and reformatted images. 3-plane MIP reconstructions were performed at an independent workstation by the technologist. All CT scans at this location are performed using CT dose reduction for ALARA by means of automated exposure control. COMPARISON: 04/17/2019 FINDINGS: Pulmonary arterial enhancement is normal. No mediastinal abnormality. No acute lung disease. Limited upper abdominal images and skeletal structures are normal IMPRESSION: 1. No evidence of pulmonary embolus or acute lung disease. Signer Name: Clark Hernandez MD Signed: 06/02/2019 11:19 PM Workstation Name: [id number] Transcribed By: JULIET Dictated By: Clark Hernandez MD Electronically Authenticated By: Clark Hernandez MD Signed Date/Time: 06/02/19 2319 - Medical Decision Making 48yo BF states that she was seen weeks ago for chest discomfort and SOB. The pt states that she was admitted and a catheter study was performed and no blockage or abnormalities were found. The pt then states that her visit this evening is for similar symptoms that she previously experienced. Her complaint this enc ounter is chest discomfort, intermittent SOB, difficulty laying flat and breathing comfortably in addition to discomfort radiating to her abdomen and arms. She then verbalized that sleeping in a seated position gives her relief. Labs and imaging were collected on the pt to rule out potential pulmonary embolisms or other cardiopulmonary emergencies. An elevated D-dimer was noted and a CT angiogram of the chest was ordered. The CT angiogram of the chest was negative for pulmonary embolisms and acute cardiopulmonary findings. The pt was explained that she needs to f/u with internal medicine and a referral was given. Pt verbalized understanding and was instructed to see ER as needed. Critical care attestation.: If time is entered above; I have spent that time in minutes in the direct care of this critically ill patient, excluding procedure time. ED Disposition Clinical Impression: Chest discomfort, SOB (shortness of breath) Disposition: - TO HOME OR SELFCARE Is pt being admited?: No Does the pt Need Aspirin: No Condition: Stable Additional Instructions: The imaging of the chest was negative for pulmonary embolisms and acute cardiopulmonary findings. The pt was explained that she needs to f/u with internal medicine and a referral was given. Pt verbalized understanding and was instructed to see ER as needed. Referrals: MARIELA NUNES MD [Primary Care Provider] - 3-5 Days [facility] [Provider Group] - 3-5 Days
[2019-06-02 19:49] LABS: Basophils % (Auto) 0.5 % (0.0-1.8); Eosinophils # (Auto) 0.1 K/mm3 (0.0-0.4); Eosinophils % (Auto) 0.6 % (0.0-4.3); Hematocrit 39.1 % (30.3-42.9); Hemoglobin 12.8 gm/dl (10.1-14.3); Lymphocytes # (Auto) 2.8 K/mm3 (1.2-5.4); Lymphocytes % (Auto) 28.2 % (13.4-35.0); Mean Corpuscular HGB Conc 33 % (30-34); Mean Corpuscular Volume 84 fl (79-97); Monocytes # (Auto) 0.8 K/mm3 (0.0-0.8); Monocytes % (Auto) 7.7 % (0.0-7.3); Platelet Count 216 K/mm3 (140-440); Red Blood Count 4.64 M/mm3 (3.65-5.03); Red Cell Distribution Width 13.8 % (13.2-15.2)
[2019-06-02 20:07] LABS: Alanine Aminotransferase 10 units/L (7-56); Albumin 3.7 g/dL (3.9-5); BUN/Creatinine Ratio 15; Blood Urea Nitrogen 9 mg/dL (7-17); Calcium 9.1 mg/dL (8.4-10.2); Hemolysis Index 18
--- NOTE | 2019-06-02 23:23 | Cat Scan Report ---
CT angio chest INDICATION / CLINICAL INFORMATION: elevated d-dimer and chest pain. TECHNIQUE: Precontrast bolus timing images were obtained followed by postcontrast axial and reformatted images. 3-plane MIP reconstructions were performed at an independent workstation by the technologist. All CT scans at this location are performed using CT dose reduction for ALARA by means of automated exposure control. COMPARISON: 04/17/2019 FINDINGS: Pulmonary arterial enhancement is normal. No mediastinal abnormality. No acute lung disease. Limited upper abdominal images and skeletal structures are normal IMPRESSION: 1. No evidence of pulmonary embolus or acute lung disease. Signer Name: Clark Hernandez MD Signed: 06/02/2019 11:19 PM Workstation Name: [id number]
== END 2019-06-03 00:10 | disposition home or self-care (01) ==
LOC: ED 14:37
DX: R07.89 Other chest pain (principal); R06.02 Shortness of breath; I10 Essential (primary) hypertension; E11.9 Type 2 diabetes mellitus without complications; F32.9 Major depressive disorder, single episode, unspecified; Z98.51 Tubal ligation status; Z79.899 Other long term (current) drug therapy
CPT/HCPCS: 36415; 71046; 71275; 80053; 85025; 85379; 93005; 93010; 99284; Q9967

== ENCOUNTER 2019-06-03 21:02 | Emergency (ER) | payer SELFPAY ==
[2019-06-03] MEDS ORDERED: HALOPERIDOL LACTATE 5 MG/1 ML INJ IM PRN (22:51)
[2019-06-03] MEDS ORDERED: LORazepam 2 MG/ML VIAL IM PRN (22:51)
--- NOTE | 2019-06-03 22:56 | Emergency Department Report ---
<ANIL TRAN - Last Filed: 06/03/19 23:31> ED General Adult HPI - General Chief complaint: Psych Stated complaint: ANXIETY ATTACK Time Seen by Provider: 06/03/19 21:19 Source: patient, RN notes reviewed, old records reviewed Mode of arrival: Stretcher Limitations: No Limitations - History of Present Illness Initial comments: The patient is a 48-year-old female. The patient had a cardiac catheterization at this hospital, May 2019, which showed basically unremarkable findings. She had a CAT scan of the chest, yesterday, which was negative for pulmonary embolism. She has a history of depression, anxiety, hypertension and diabetes. The patient denies physical pain to myself otherwise. Apparently, she endorse suicidality, and hallucinations. Upon further clarification, the patient stated that her respiratory difficulties were so upsetting, that she had thoughts of killing herself. She states that she occasionally hears music. She presents today with a complaint of difficulty breathing at night. She reports that she gets quite anxious and she experiences these symptoms. The symptoms are painless. She reports that she is nauseous. She is currently drinking water out of a cup. -: Gradual Consistency: intermittent Improves with: none Worsens with: other (while sleeping) - Related Data Previous Rx's Medication Instructions Recorded Last Taken Type Insulin NPH/Regular [NovoLIN 70/30] 25 unit SQ BIDDIAB 30 Days #1 05/20/19 Unknown Rx bottle Aspirin [Adult Aspirin] 81 mg PO DAILY #30 tablet. 06/04/19 Unknown Rx Lisinopril [Zestril TAB] 20 mg PO QDAY #30 tablet 06/04/19 Unknown Rx PARoxetine [Paxil] 40 mg PO DAILY #30 tablet 06/04/19 Unknown Rx Allergies Allergy/AdvReac Type Severity Reaction Status Date / Time No Known Allergies Allergy Verified 06/02/19 14:40 ED Review of Systems Constitutional: denies: fever Eyes: denies: eye discharge ENT: denies: congestion Respiratory: shortness of breath Cardiovascular: denies: syncope Gastrointestinal: vomiting Genitourinary: denies: dysuria Neurological: weakness Psychiatric: anxiety ED Past Medical Hx - Past Medical History Previous Medical History?: Yes Hx Hypertension: Yes Hx Diabetes: Yes Hx Psychiatric Treatment: Yes (Depression) Additional medical history: h pylori- not treated as of 11-16 - Surgical History Additional Surgical History: Tubal ligation - Social History Smoking Status: Never Smoker Substance Use Type: None - Medications Home Medications: Home Medications Medication Instructions Recorded Confirmed Last Taken Type Insulin NPH/Regular [NovoLIN 70/30] 25 unit SQ BIDDIAB 30 Days #1 05/20/19 06/04/19 Unknown Rx bottle Aspirin [Adult Aspirin] 81 mg PO DAILY #30 tablet. 06/04/19 Unknown Rx Lisinopril [Zestril TAB] 20 mg PO QDAY #30 tablet 06/04/19 Unknown Rx PARoxetine [Paxil] 40 mg PO DAILY #30 tablet 06/04/19 Unknown Rx ED Physical Exam - General Limitations: No Limitations General appearance: alert, anxious, obese - Head Head exam: Present: atraumatic, normocephalic - Eye Eye exam: Present: normal appearance, EOMI. Absent: nystagmus - ENT ENT exam: Present: normal exam, normal orophraynx, mucous membranes moist, n ormal external ear exam - Neck Neck exam: Present: normal inspection, full ROM. Absent: tenderness, meningismus - Respiratory Respiratory exam: Present: normal lung sounds bilaterally. Absent: respiratory distress, wheezes, rales, rhonchi, stridor - Cardiovascular Cardiovascular Exam: Present: regular rate, normal rhythm, normal heart sounds. Absent: bradycardia, tachycardia, irregular rhythm, systolic murmur, diastolic murmur, rubs, gallop - GI/Abdominal GI/Abdominal exam: Present: soft. Absent: distended, tenderness, guarding, rebound, rigid, pulsatile mass - Extremities Exam Extremities exam: Present: normal inspection, full ROM, other (2+ pulses noted in bilateral upper extremities. There is no long bony tenderness. The muscular compartments are soft.) - Back Exam Back exam: Present: normal inspection, full ROM. Absent: tenderness, CVA tenderness (R), CVA tenderness (L), paraspinal tenderness, vertebral tenderness - Neurological Exam Neurological exam: Present: alert, normal gait, other (there is no facial droop. The tongue is midline. Extraocular movements are intact bilaterally. There is 5 out of 5 strength in bilateral upper and lower extremities. Sensation is intact to light touch bilateral upper and lower extremities. There is no past- pointing. There is no pronator drift. There is normal [id number]. There is a normal gait.). Absent: motor sensory deficit - Psychiatric Psychiatric exam: Present: anxious - Skin Skin exam: Present: warm, dry, intact, normal color. Absent: rash ED Course - Reevaluation(s) Reevaluation #1: 06/03/19 23:00 differential diagnosis, including but not limited to: Anxiety, panic attack, conversion disorder, psychosis Assessment and plan: 48-year-old female presenting with multiple complaints, including shortness of breath only at nighttime, anxiety, hearing music, and passive suicidality. She is afebrile with reassuring vital signs. She is walking with a steady gait. Her physical examination is unremarkable. She is drinking water without difficulty. Psychiatric laboratory studies were ordered prior to my evaluation. Her cardiac catheterization from weight May is reviewed and appreciated. Her CT scan of the chest from yesterday is reviewed and appreciated. Psychiatric consultation requested. Screening laboratory studies are pending. ER hold order has been executed. Reevaluation #2: 06/03/19 23:32 Laboratory studies reviewed and appreciated. Decreased CO2 likely secondary to anxiety from intermittent rapid breathing At this point in time, the patient does not appear to have an immediate medical contraindication to psychiatric admission, evaluation, consultation and placement. mental health consultation is pending at this time. 06/03/19 23:33 ED Medical Decision Making - Lab Data Result diagrams: 06/03/19 21:58 06/03/19 21:58 Vital Signs 06/03/19 06/03/19 21:40 21:46 Temperature 98.1 F 98.1 F Pulse Rate 77 77 Respiratory 20 20 Rate Blood Pressure 139/71 Blood Pressure 139/71 [Right] O2 Sat by Pulse 100 100 Oximetry Vital Signs 06/03/19 06/03/19 21:40 21:46 Temperature 98.1 F 98.1 F Pulse Rate 77 77 Respiratory 20 20 Rate Blood Pressure 139/71 Blood Pressure 139/71 [Right] O2 Sat by Pulse 100 100 Oximetry Labs 06/03/19 21:58 WBC 9.6 RBC 4.71 Hgb 13.1 Hct 40.2 MCV 85 MCH 28 MCHC 33 RDW 13.9 Plt Count 239 Lymph % (Auto) 22.8 Lyon % (Auto) 5.6 Eos % (Auto) 0.7 Baso % (Auto) 2.9 H Lymph # 2.2 Lyon # 0.5 Eos # 0.1 Baso # 0.3 H Seg Neutrophils % 68.0 Seg Neutrophils # 6.5 - EKG Data -: EKG Interpreted by Nh EKG shows normal: sinus rhythm Rate: normal - EKG Data 06/03/19 23:32 The EKG today shows a sinus rhythm, 81 bpm, QTC is prolonged, there is low voltage, there is motion artifact, the EKG is not consistent with ST elevation myocardial infarction, and it is unchanged from prior EKG from May 2019. The EKG is not consistent with stemi - Radiology Data Radiology results: report reviewed, image reviewed Print Report Referring Physician: CARMINA RUIZ Patient Name: AYAKA LOGAN Date of : 1970 Sex: Female Report Date: 2019-06-02 Report Status: Finalized Findings [address] [address] Cat Scan Report Signed Patient: AYAKA LOGAN MR#: [id number] : 1970 Acct:[id number] Age/Sex: 48 / F ADM Date: 06/02/19 Loc: ED Attending Dr: Lexi guallpa Physician: CARMINA RUIZ PA-C Date of Service: 06/02/19 Procedure(s): CT angio chest Accession Number(s): [id number] cc: CARMINA RUIZ PA-C CT angio chest INDICATION / CLINICAL INFORMATION: elevated d-dimer and chest pain. TECHNIQUE: Precontrast bolus timing images were obtained followed by p ostcontrast axial and reformatted images. 3-plane MIP reconstructions were performed at an independent workstation by the technologist. All CT scans at this location are performed using CT dose reduction for ALARA by means of automated exposure control. COMPARISON: 04/17/2019 FINDINGS: Pulmonary arterial enhancement is normal. No mediastinal abnormality. No acute lung disease. Limited upper abdominal images and skeletal structures are normal IMPRESSION: 1. No evidence of pulmonary embolus or acute lung disease. Signer Name: Clark Hernandez MD Signed: 06/02/2019 11:19 PM Workstation Name: [id number] Transcribed By: JULIET Dictated By: Clark Hernandez MD Electronically Authenticated By: Clark Hernandez MD Signed Date/Time: 06/02/192318 DD/ 2316 ED Disposition Clinical Impression: Anxiety, Medical clearance for psychiatric admission, Anxiety disorder, unspecified, Chest discomfort, Suicidal ideation Disposition: DC-01 TO HOME OR SELFCARE Condition: Stable Instructions: Suicide Prevention for Adults (ED) Prescriptions: Aspirin [Adult Aspirin] 81 mg PO DAILY #30 tablet. PARoxetine [Paxil] 40 mg PO DAILY #30 tablet Lisinopril [Zestril TAB] 20 mg PO QDAY #30 tablet Referrals: PRIMARY CARE, [Primary Care Provider] - 7 Days <JERI CASH - Last Filed: 06/04/19 14:39> ED Review of Systems ROS: Stated complaint: ANXIETY ATTACK Other details as noted in HPI ED Course Vital Signs 06/03/19 06/03/19 06/03/19 21:40 21:46 21:48 Temperature 98.1 F 98.1 F Pulse Rate 77 77 Respiratory 20 20 26 H Rate Blood Pressure 139/71 Blood Pressure 139/71 [Right] O2 Sat by Pulse 100 100 98 Oximetry 06/04/19 06/04/19 06/04/19 01:25 07:57 08:37 Temperature 98.2 F 98.0 F Pulse Rate 83 84 Respiratory 18 18 Rate Blood Pressure Blood Pressure 113/64 124/79 [Right] O2 Sat by Pulse 97 97 98 Oximetry 06/04/19 09:59 Temperature Pulse Rate 64 Respiratory Rate Blood Pressure 116/59 Blood Pressure [Right] O2 Sat by Pulse Oximetry - Reevaluation(s) Reevaluation #3: 06/04/19 14:38 Patient evaluated by me. Patient is 48 years old female admitted to the ER for chest pain and suicidal ideation and panic attack. Patient has been evaluated by our psychiatric team and advised that patient can be discharged home to follow-up as an outpatient. Patient denied any suicidal or homicidal ideation. No visual or auditory hallucination. Patient is medically and psychiatrically stable for discharge. ED Medical Decision Making - Lab Data Result diagrams: 06/03/19 21:58 06/03/19 21:58 Critical care attestation.: If time is entered above; I have spent that time in minutes in the direct care of this critically ill patient, excluding procedure time. ED Disposition Is pt being admited?: No
[2019-06-03 22:59] LABS: Basophils # (Auto) 0.3 K/mm3 (0.0-0.1); Basophils % (Auto) 2.9 % (0.0-1.8); Eosinophils # (Auto) 0.1 K/mm3 (0.0-0.4); Eosinophils % (Auto) 0.7 % (0.0-4.3); Hematocrit 40.2 % (30.3-42.9); Hemoglobin 13.1 gm/dl (10.1-14.3); Lymphocytes # (Auto) 2.2 K/mm3 (1.2-5.4); Lymphocytes % (Auto) 22.8 % (13.4-35.0); Mean Corpuscular HGB Conc 33 % (30-34); Mean Corpuscular Volume 85 fl (79-97); Monocytes # (Auto) 0.5 K/mm3 (0.0-0.8); Monocytes % (Auto) 5.6 % (0.0-7.3); Platelet Count 239 K/mm3 (140-440); Red Blood Count 4.71 M/mm3 (3.65-5.03); Red Cell Distribution Width 13.9 % (13.2-15.2)
[2019-06-03 23:04] LABS: BUN/Creatinine Ratio 12; Blood Urea Nitrogen 7 mg/dL (7-17); Calcium 9.6 mg/dL (8.4-10.2); Hemolysis Index 17
[2019-06-04] MEDS ORDERED: ONDANSETRON 4 MG ODT TAB PO ONE ×2 (00:45→14:33)
[2019-06-04] MEDS ORDERED: LIDOCAINE VISCOUS 2% 15 ML ORAL LIQD ONE (00:56)
[2019-06-04] MEDS ORDERED: ALUM-MAG HYDROXIDE-SIMETHICONE 200-200-20MG/5ML ORAL LIQD 30 ML ONE (00:56)
[2019-06-04] MEDS ORDERED: ONDANSETRON 4 MG ODT TAB ONE (00:57)
[2019-06-04] MEDS ORDERED: LIDOCAINE VISCOUS 2% 15 ML ORAL LIQD PO ONE (01:29)
[2019-06-04] MEDS ORDERED: ALUM-MAG HYDROXIDE-SIMETHICONE 200-200-20MG/5ML ORAL LIQD 30 ML PO ONE (01:29)
[2019-06-04 05:24] LABS: Bilirubin,Urine NEG (Negative); Blood,Urine MOD (Negative); Color,Urine Yellow (Yellow); Protein,Urine <15 mg/dL mg/dL (Negative); Urobilinogen,Urine < 2.0 mg/dL (<2.0); WBC,Urine < 1.0 /HPF (0.0-6.0)
[2019-06-04] MEDS ORDERED: INSULIN NPH/REGULAR 70/30 INJ SUB-Q SCH (08:00)
[2019-06-04 09:59] VITALS: BP 116/59
[2019-06-04] MEDS ORDERED: ASPIRIN EC 81 MG TAB PO SCH (10:00)
[2019-06-04] MEDS ORDERED: LISINOPRIL 20 MG TAB PO SCH (10:00)
[2019-06-04] MEDS ORDERED: PARoxetine 20 MG TAB PO SCH (10:00)
--- NOTE | 2019-06-04 12:43 | Consultation ---
History of Present Illness - Reason for Consult Consult date: 06/04/19 Reason for consult: Pych Evlauation - Chief Complaint Chief complaint: Panic attacks, N/V, anxiety - History of Present Psychiatric Illness Pt states she's been waking up with pacick attacks, and having N/V, hyperventilating for past 3 weeks. States she was on paroxetine 20mg and was unable to get her meds. She says this is when she started noticing the symptoms. Ria states she was placed back on her meds and still experiencing these symptoms. Medications and Allergies Allergies Allergy/AdvReac Type Severity Reaction Status Date / Time No Known Allergies Allergy Verified 06/02/19 14:40 Home Medications Medication Instructions Recorded Confirmed Last Taken Type PARoxetine [Paxil] 20 mg PO DAILY #30 tablet 05/16/19 06/04/19 05/18/19 Rx Aspirin [Adult Aspirin] 81 mg PO DAILY #30 tablet. 05/20/19 06/04/19 Unknown Rx Insulin NPH/Regular [NovoLIN 70/30] 25 unit SQ BIDDIAB 30 Days #1 05/20/19 06/04/19 Unknown Rx bottle Lisinopril [Zestril TAB] 20 mg PO QDAY #30 tablet 05/20/19 06/04/19 Unknown Rx Active Meds: Active Medications Aspirin (Halfprin Ec) 81 mg PO DAILY [facility] Last Admin: 06/04/19 09:56 Dose: 81 mg Documented by: Haloperidol Lactate (Haldol) 5 mg IM Q6HR PRN PRN Reason: Agitation Insulin Human Isoph/Insulin Regular (Humulin 70/30) 25 unit SUB-Q BIDDIAB [facility] Last Admin: 06/04/19 07:45 Dose: 25 unit Documented by: Lisinopril (Zestril) 20 mg PO QDAY [facility] Last Admin: 06/04/19 09:59 Dose: Not Given Documented by: Lorazepam (Ativan) 2 mg IM Q4HR PRN PRN Reason: Agitation Paroxetine HCl (Paxil) 20 mg PO DAILY [facility] Last Admin: 06/04/19 09:56 Dose: 20 mg Documented by: Past psychiatric history - past Psychiatric treatment and history Psych: Anxiety, Depression Mental Status Exam - Vital signs Last Vital Signs Temp 98.0 F 06/04/19 08:37 Pulse 64 12/05/19 09:59 Resp 18 06/04/19 07:57 BP 116/59 06/04/19 09:59 Pulse Ox 98 06/04/19 08:37 - Exam Orientation: time, place, person Affect: normal Mood: appropriate Thought Process: Intact Perceptions: none Speech: normal rate and pattern Concentration: focused Results Result Diagrams: 06/03/19 21:58 06/03/19 21:58 Abnormal lab results 06/03/19 06/03/19 06/03/19 Range/Units 21:58 21:58 21:58 Baso % (Auto) (0.0-1.8) % Baso # (0.0-0.1) K/mm3 Sodium 136 L (137-145) mmol/L Carbon Dioxide 18 L (22-30) mmol/L Creatinine 0.6 L (0.7-1.2) mg/dL Glucose 161 H (65-100) mg/dL POC Glucose (70-105) Salicylates < 0.3 L (2.8-20.0) mg/dL Acetaminophen < 5.0 L (10.0-30.0) ug/mL 06/03/19 06/04/19 Range/Units 21:58 07:44 Baso % (Auto) 2.9 H (0.0-1.8) % Baso # 0.3 H (0.0-0.1) K/mm3 Sodium (137-145) mmol/L Carbon Dioxide (22-30) mmol/L Creatinine (0.7-1.2) mg/dL Glucose (65-100) mg/dL POC Glucose 211 H (70-105) Salicylates (2.8-20.0) mg/dL Acetaminophen (10.0-30.0) ug/mL All other labs normal.
[2019-06-04] MEDS ORDERED: hydrOXYzine PAMOATE 25 MG CAP PO PRN (12:52)
[2019-06-04] MEDS ORDERED: traZODone 50 MG TAB PO PRN (12:52)
[2019-06-04] MEDS: PARoxetine 20 MG TAB PO ONE ×2 (13:00→13:11)
--- NOTE | 2019-06-04 13:26 | Consultation ---
History of Present Illness - Reason for Consult Consult date: 06/04/19 Reason for consult: Terri Hzd - Chief Complaint Chief complaint: Panic attacks, N/V, anxiety - History of Present Psychiatric Illness Pt states she's been waking up with panic attacks, and having N/V, hyperventilating for past 3 weeks. States she was on paroxetine 20mg and was unable to get her meds. She says this is when she started noticing the symptoms. Ria states she was placed back on her meds and still experiencing these symptoms. She states she was suicidal yesterday, but denies SI/HI today. Pt denies hallucinations of any kind. States her appetite is good, and she has trouble sleeping at times Medications and Allergies Allergies Allergy/AdvReac Type Severity Reaction Status Date / Time No Known Allergies Allergy Verified 06/02/19 14:40 Home Medications Medication Instructions Recorded Confirmed Last Taken Type Insulin NPH/Regular [NovoLIN 70/30] 25 unit SQ BIDDIAB 30 Days #1 05/20/19 06/04/19 Unknown Rx bottle Aspirin [Adult Aspirin] 81 mg PO DAILY #30 tablet. 06/04/19 Unknown Rx Lisinopril [Zestril TAB] 20 mg PO QDAY #30 tablet 06/04/19 Unknown Rx PARoxetine [Paxil] 40 mg PO DAILY #30 tablet 06/04/19 Unknown Rx Active Meds: Active Medications Aspirin (Halfprin Ec) 81 mg PO DAILY [facility] Last Admin: 06/04/19 09:56 Dose: 81 mg Documented by: Haloperidol Lactate (Haldol) 5 mg IM Q6HR PRN PRN Reason: Agitation Hydroxyzine Pamoate (Vistaril) 50 mg PO Q6H PRN PRN Reason: Anxiety Insulin Human Isoph/Insulin Regular (Humulin 70/30) 25 unit SUB-Q BIDDIAB [facility] Last Admin: 06/04/19 07:45 Dose: 25 unit Documented by: Lisinopril (Zestril) 20 mg PO QDAY [facility] Last Admin: 06/04/19 09:59 Dose: Not Given Documented by: Lorazepam (Ativan) 2 mg IM Q4HR PRN PRN Reason: Agitation Paroxetine HCl (Paxil) 20 mg PO ONCE ONE Stop: 06/04/19 13:41 Last Admin: 06/04/19 13:11 Dose: Not Given Documented by: Paroxetine HCl (Paxil) 40 mg PO DAILY DHARA Trazodone HCl (Desyrel) 50 mg PO QHS PRN PRN Reason: insomnia Past psychiatric history - past Psychiatric treatment and history Psych: Anxiety, Depression, Panic - Social History Social history: single (liven with long-time boyfriend. Pt states she quit smoking long ago. Denies drug use, 8th grade education) Mental Status Exam - Vital signs Last Vital Signs Temp 98.0 F 06/04/19 08:37 Pulse 64 06/04/19 09:59 Resp 18 06/04/19 07:57 BP 116/59 06/04/19 09:59 Pulse Ox 98 06/04/19 08:37 - Exam Orientation: time, place, person Affect: normal Mood: anxious Thought Process: Intact Perceptions: none Speech: normal rate and pattern Concentration: focused Motor activity: normal Level of consciousness: alert Memory: Intact Sleep Symptoms: Insomnia Interaction: pleasant Results Result Diagrams: 06/03/19 21:58 06/03/19 21:58 Abnormal lab results 06/03/19 06/03/19 06/03/19 Range/Units 21:58 21:58 21:58 Baso % (Auto) (0.0-1.8) % Baso # (0.0-0.1) K/mm3 Sodium 136 L (137-145) mmol/L Carbon Dioxide 18 L (22-30) mmol/L Creatinine 0.6 L (0.7-1.2) mg/dL Glucose 161 H (65-100) mg/dL POC Glucose (70-105) Salicylates < 0.3 L (2.8-20.0) mg/dL Acetaminophen < 5.0 L (10.0-30.0) ug/mL 06/03/19 06/04/19 Range/Units 21:58 07:44 Baso % (Auto) 2.9 H (0.0-1.8) % Baso # 0.3 H (0.0-0.1) K/mm3 Sodium (137-145) mmol/L Carbon Dioxide (22-30) mmol/L Creatinine (0.7-1.2) mg/dL Glucose (65-100) mg/dL POC Glucose 211 H (70-105) Salicylates (2.8-20.0) mg/dL Acetaminophen (10.0-30.0) ug/mL All other labs normal. Assessment and Plan - Psychiatric problem (1) MDD (major depressive disorder), recurrent episode, moderate Current Visit: Yes Status: Acute plan to address problem: pt may be d/c home when medically stable Please rescind 1013 d/c home on the following medications: Paroxetine 40mg po daily X30 tablets Trazodone 50mg po qhs prn insomnia X30 tablets Vistaril 50mg po Qid prn anxiety X60 tablets Thank you for consulting psychiatry. Please call if you have any problems (2) Anxiety disorder, unspecified Current Visit: Yes Status: Acute plan to address problem: as above
[2019-06-05] MEDS ORDERED: PARoxetine 20 MG TAB PO SCH (09:00)
== END 2019-06-04 15:11 | disposition home or self-care (01) ==
LOC: EEVIPCON 21:02 → ED 21:02
DX: F32.9 Major depressive disorder, single episode, unspecified (principal); F41.9 Anxiety disorder, unspecified; I10 Essential (primary) hypertension; E11.9 Type 2 diabetes mellitus without complications; Z98.51 Tubal ligation status; Z79.899 Other long term (current) drug therapy
CPT/HCPCS: 36415; 80048; 80320; 81001; 82550; 82962; 85025; 93005; 93010; 96372; G0480; J1815; Q0162

== ENCOUNTER 2019-06-09 18:41 | Emergency (ER) | payer SELFPAY ==
--- NOTE | 2019-06-09 19:41 | Event Note ---
ED Screening Note Date of service: 06/09/19 Time: 19:37 ED Screening Note: 48 y o female presents with cc of upper abd pain and coughing with sob This initial assessment/diagnostic orders/clinical plan/treatment(s) is/are subject to change based on patients health status, clinical progression and re- assessment by fellow clinical providers in the ED. Further treatment and workup at subsequent clinical providers discretion. Patient/guardian urged not to elope from the ED as their condition may be serious if not clinically assessed and managed. Initial orders include: labs/cxr
--- NOTE | 2019-06-09 20:15 | XRay Report ---
CHEST 2 VIEWS INDICATION / CLINICAL INFORMATION: UPPER RIGHT CHEST PAIN, RUMBLING IN STOMACH BUT NO PAIN; SEEN ON 06/03 FOR SAME THING. COMPARISON: 06/02/2019. FINDINGS: SUPPORT DEVICES: None. HEART / MEDIASTINUM: The heart size and pulmonary vasculature are normal. The aorta is normal in [place]. LUNGS / PLEURA: No significant pulmonary or pleural abnormality. No pneumothorax. ADDITIONAL FINDINGS: There are mild degenerative changes involving the right shoulder. IMPRESSION: No acute abnormality or significant change. Signer Name: You Ballesteros MD Signed: 06/09/2019 8:11 PM Workstation Name: [id number]
--- NOTE | 2019-06-09 21:42 | Emergency Department Report ---
ED General Adult HPI - General Chief complaint: Abdominal Pain Stated complaint: NO BM/CHEST PAIN/NAUSEA/SOB Time Seen by Provider: 06/09/19 21:36 Source: patient Mode of arrival: Ambulatory Limitations: No Limitations - Related Data Previous Rx's Medication Instructions Recorded Last Taken Type Insulin NPH/Regular [NovoLIN 70/30] 25 unit SQ BIDDIAB 30 Days #1 05/20/19 Unknown Rx bottle Aspirin [Adult Aspirin] 81 mg PO DAILY #30 tablet. 06/04/19 Unknown Rx Lisinopril [Zestril TAB] 20 mg PO QDAY #30 tablet 06/04/19 Unknown Rx PARoxetine [Paxil] 40 mg PO DAILY #30 tablet 06/04/19 Unknown Rx traZODone [Desyrel] 50 mg PO QHS #14 tab 06/04/19 Unknown Rx Allergies Allergy/AdvReac Type Severity Reaction Status Date / Time No Known Allergies Allergy Verified 06/02/19 14:40 ED Review of Systems ROS: Stated complaint: NO BM/CHEST PAIN/NAUSEA/SOB Other details as noted in HPI ED Past Medical Hx - Past Medical History Previous Medical History?: Yes Hx Hypertension: Yes Hx Diabetes: Yes Hx Psychiatric Treatment: Yes (Depression) Additional medical history: h pylori- not treated as of 11-16 - Surgical History Past Surgical History?: Yes Additional Surgical History: Tubal ligation - Social History Smoking Status: Never Smoker Substance Use Type: None - Medications Home Medications: Home Medications Medication Instructions Recorded Confirmed Last Taken Type Insulin NPH/Regular [NovoLIN 70/30] 25 unit SQ BIDDIAB 30 Days #1 05/20/19 06/04/19 Unknown Rx bottle Aspirin [Adult Aspirin] 81 mg PO DAILY #30 tablet. 06/04/19 Unknown Rx Lisinopril [Zestril TAB] 20 mg PO QDAY #30 tablet 06/04/19 Unknown Rx PARoxetine [Paxil] 40 mg PO DAILY #30 tablet 06/04/19 Unknown Rx traZODone [Desyrel] 50 mg PO QHS #14 tab 06/04/19 Unknown Rx ED Physical Exam - General Limitations: No Limitations ED Course Vital Signs 06/09/19 19:14 Temperature 99.4 F Pulse Rate 85 Respiratory 16 Rate Blood Pressure 128/83 O2 Sat by Pulse 97 Oximetry ED Medical Decision Making - Radiology Data Radiology results: report reviewed CHEST 2 VIEWS INDICATION / CLINICAL INFORMATION: UPPER RIGHT CHEST PAIN, RUMBLING IN STOMACH BUT NO PAIN; SEEN ON 06/03 FOR SAME THING. COMPARISON: 06/02/2019. FINDINGS: SUPPORT DEVICES: None. HEART / MEDIASTINUM: The heart size and pulmonary vasculature are normal. The aorta is normal in caliber. LUNGS / PLEURA: No significant pulmonary or pleural abnormality. No pneumothorax. ADDITIONAL FINDINGS: There are mild degenerative changes involving the right shoulder. IMPRESSION: No acute abnormality or significant change. Critical care attestation.: If time is entered above; I have spent that time in minutes in the direct care of this critically ill patient, excluding procedure time. ED Disposition Condition: Stable Instructions: Abdominal Pain (ED)
[2019-06-09 22:45] LABS: Basophils % (Auto) 0.3 % (0.0-1.8); Eosinophils # (Auto) 0.1 K/mm3 (0.0-0.4); Eosinophils % (Auto) 1.5 % (0.0-4.3); Hematocrit 35.7 % (30.3-42.9); Hemoglobin 11.9 gm/dl (10.1-14.3); Lymphocytes # (Auto) 2.8 K/mm3 (1.2-5.4); Lymphocytes % (Auto) 32.4 % (13.4-35.0); Mean Corpuscular HGB Conc 33 % (30-34); Mean Corpuscular Volume 84 fl (79-97); Monocytes # (Auto) 0.7 K/mm3 (0.0-0.8); Monocytes % (Auto) 7.8 % (0.0-7.3); Platelet Count 247 K/mm3 (140-440); Red Blood Count 4.26 M/mm3 (3.65-5.03)
[2019-06-09] MEDS ORDERED: FAMOTIDINE 20 MG TAB PO ONE (22:46)
[2019-06-09] MEDS ORDERED: ASPIRIN 325 MG TAB PO ONE (22:46)
[2019-06-09] MEDS: METOCLOPRAMIDE 10 MG/2 ML INJ IV ONE (22:50)
--- NOTE | 2019-06-09 23:09 | Emergency Department Report ---
HPI - General Chief Complaint: Abdominal Pain Time Seen by Provider: 06/09/19 21:36 - HPI HPI: Room 44 The patient is a 48-year-old female presenting with chief complaint of abdominal pain. Patient states she's had cramping intermittent midepigastric abdominal pain for the past 2 days. Patient admits to nausea but denies vomiting. Patient states she's been constipated and has not had a bowel movement for 3 days. Patient states she is passing flatus. Patient states she has not knows a change in her abdominal pain with meals. The patient states she used an Ex-Lax yesterday but it did not help. The patient drove herself to the emergency [facility] ED Past Medical Hx - Past Medical History Previous Medical History?: Yes Hx Hypertension: Yes Hx Diabetes: Yes Hx Psychiatric Treatment: Yes (Depression) Additional medical history: h pylori- not treated as of 11-16 - Surgical History Past Surgical History?: Yes Additional Surgical History: Tubal ligation - Family History Family history: no significant - Social History Smoking Status: Never Smoker Substance Use Type: None - Medications Home Medications: Home Medications Medication Instructions Recorded Confirmed Last Taken Type Insulin NPH/Regular [NovoLIN 70/30] 25 unit SQ BIDDIAB 30 Days #1 05/20/19 06/04/19 Unknown Rx bottle Aspirin [Adult Aspirin] 81 mg PO DAILY #30 tablet. 06/04/19 Unknown Rx Lisinopril [Zestril TAB] 20 mg PO QDAY #30 tablet 06/04/19 Unknown Rx PARoxetine [Paxil] 40 mg PO DAILY #30 tablet 06/04/19 Unknown Rx traZODone [Desyrel] 50 mg PO QHS #14 tab 06/04/19 Unknown Rx Famotidine [Pepcid] 20 mg PO BID #30 tablet 06/10/19 Unknown Rx HYDROcodone/APAP 5-325 [[place] 1 - 2 each PO Q6HR PRN #10 tablet 06/10/19 Unknown Rx 5/325] Lactulose [Cephulac] 20 gm PO QDAY #90 ml 06/10/19 Unknown Rx Metoclopramide [Reglan] 10 mg PO TID PRN #30 tab 06/10/19 Unknown Rx ED Review of Systems ROS: Stated complaint: NO BM/CHEST PAIN/NAUSEA/SOB Other details as noted in HPI Constitutional: denies: fever Eyes: denies: eye pain ENT: denies: throat pain Cardiovascular: denies: chest pain Endocrine: no symptoms reported Gastrointestinal: abdominal pain, nausea, constipation. denies: vomiting Genitourinary: denies: dysuria Musculoskeletal: denies: back pain Neurological: denies: headache Physical Exam - Physical Exam Vital Signs: Vital Signs 06/09/19 19:14 Temperature 99.4 F Pulse Rate 85 Respiratory 16 Rate Blood Pressure 128/83 O2 Sat by Pulse 97 Oximetry Physical Exam: GENERAL: The patient is well-developed well-nourished female lying on stretcher not appear to be in acute distress. [] HEENT: Normocephalic. Atraumatic. Extraocular motions are intact. Patient has moist mucous membranes. NECK: Supple. Trachea midline CHEST/LUNGS: Clear to auscultation. There is no respiratory distress noted. HEART/CARDIOVASCULAR: Regular. There is no tachycardia. There is no gallop rub or murmur. ABDOMEN: Abdomen is soft, with tenderness to palpation in the mid epigastric and left upper quadrant. Patient has normal bowel sounds. There is no abdominal distention. SKIN: There is no rash. There is no edema. There is no diaphoresis. NEURO: The patient is awake, alert, and oriented. The patient is cooperative. The patient has normal speech MUSCULOSKELETAL: There is no evidence of acute injury. ED Course Vital Signs 06/09/19 19:14 Temperature 99.4 F Pulse Rate 85 Respiratory 16 Rate Blood Pressure 128/83 O2 Sat by Pulse 97 Oximetry ED Medical Decision Making - Lab Data Result diagrams: 06/09/19 22:26 06/09/19 22:26 Laboratory Tests 06/09/19 06/09/19 06/09/19 22:26 22:26 22:26 WBC 8.5 RBC 4.26 Hgb 11.9 Hct 35.7 MCV 84 MCH 28 MCHC 33 RDW 14.0 Plt Count 247 Lymph % (Auto) 32.4 [place] % (Auto) 7.8 H Eos % (Auto) 1.5 Baso % (Auto) 0.3 Lymph # 2.8 [place] # 0.7 Eos # 0.1 Baso # 0.0 Seg Neutrophils % 58.0 Seg Neutrophils # 4.9 Sodium 140 Potassium 3.9 Chloride 102.7 Carbon Dioxide 26 Anion Gap 15 BUN 7 Creatinine 0.6 L Estimated GFR > 60 BUN/Creatinine Ratio 12 Glucose 194 H Calcium 9.1 Total Bilirubin 0.30 AST 13 ALT 11 Alkaline Phosphatase 60 Troponin T < 0.010 NT-Pro-B Natriuret Pep 40.03 Total Protein 7.2 Albumin 3.4 L Albumin/Globulin Ratio 0.9 Lipase 42 - Radiology Data Radiology results: report reviewed (CT abdomen and pelvis), image reviewed (CT abdomen pelvis) [facility] [address] [place] [address] Cat Scan Report Signed Patient: AYAKA LOGAN MR#: [id number] : 1970 Acct:[id number] Age/Sex: 48 / F ADM Date: 06/09/19 Loc: ED Attending Dr: Jean santos Physician: CHERYL RODRIGUES MD Date of Service: 06/09/19 Procedure(s): CT abdomen pelvis w con Accession Number(s): [id number] cc: CHERYL RODRIGUES MD CT ABDOMEN AND PELVIS WITH CONTRAST INDICATION: epigastric pain and nausea. COMPARISON: No relevant prior imaging study available. TECHNIQUE: Axial, coronal and sagittal CT imaging of the abdomen and pelvis was performed after injection of 100 cc Omnipaque [address] scans at this location are performed using CT dose reduction for ALARA by means of automated exposure control. FINDINGS: LOWER CHEST: No significant abnormality. LIVER: No significant abnormality. BILIARY: No significant abnormality. PANCREAS: No significant abnormality. SPLEEN: No significant abnormality. ADRENALS: No significant abnormality. KIDNEYS AND URETERS: No significant abnormality. GI TRACT: No significant abnormality of the stomach, small bowel or colon. Unremarkable appendix. PERITONEUM: No free fluid. No free air. No fluid collection. LYMPH NODES: No significant adenopathy. VASCULATURE: The aorta and its visualized branches are patent and normal in caliber with mild atherosclerosis. URINARY BLADDER: No significant abnormality. REPRODUCTIVE ORGANS: Multiple probable fibroids are seen throughout the uterus. No additional significant abnormality. ADDITIONAL FINDINGS: None. SKELETAL SYSTEM: Mild degenerative changes are present throughout the spine without an acute abnormality. IMPRESSION: No acute abnormality of the abdomen or pelvis. Signer Name: Alex Sewell MD Signed: 06/10/2019 12:06 AM Workstation Name: [id number] Transcribed By: NAVA Dictated By: Alex Sewell MD Electronically Authenticated By: Alex Sewell MD Signed Date/Time: 06/10/19 0006 DD/ 0002 TD/TT: - Differential Diagnosis peptic ulcer disease, pancreatitis, gastroenteritis, constipation Critical care attestation.: If time is entered above; I have spent that time in minutes in the direct care of this critically ill patient, excluding procedure time. ED Disposition Clinical Impression: Abdominal pain, Constipation Disposition: DC- TO HOME OR SELFCARE Is pt being admited?: No Does the pt Need Aspirin: No Condition: Stable Instructions: Abdominal Pain (ED) Additional Instructions: Return to the emergency department should you develop worsening symptoms, inability to tolerate food or liquids, high fever or any other concerns Prescriptions: Lactulose [Cephulac] 20 gm PO QDAY #90 ml HYDROcodone/APAP 5-325 [[place] 5/325] 1 - 2 each PO Q6HR PRN #10 tablet PRN Reason: Pain Famotidine [Pepcid] 20 mg PO BID #30 tablet Metoclopramide [Reglan] 10 mg PO TID PRN #30 tab PRN Reason: Nausea Referrals: CHIO HARPER MD [Staff Physician] - 3-5 Days (Dr. Harper is a health evaluator. Please follow up with him for further evaluation) Time of Disposition: 00:25
[2019-06-09 23:10] LABS: Alanine Aminotransferase 11 units/L (7-56); Albumin 3.4 g/dL (3.9-5); BUN/Creatinine Ratio 12; Blood Urea Nitrogen 7 mg/dL (7-17); Calcium 9.1 mg/dL (8.4-10.2); Hemolysis Index 5
[2019-06-09] MEDS ORDERED: METOCLOPRAMIDE 10 MG TAB PO ONE (23:58)
[2019-06-09] MEDS ORDERED: diphenhydrAMINE 25 MG CAP PO ONE (23:58)
--- NOTE | 2019-06-10 00:11 | Cat Scan Report ---
CT ABDOMEN AND PELVIS WITH CONTRAST INDICATION: epigastric pain and nausea. COMPARISON: No relevant prior imaging study available. TECHNIQUE: Axial, coronal and sagittal CT imaging of the abdomen and pelvis was performed after inje ction of 100 cc Omnipaque [address] scans at this location are performed using CT dose re duction for ALARA by means of automated exposure control. FINDINGS: LOWER CHEST: No significant abnormality. LIVER: No significant abnormality. BILIARY: No significant abnormality. PANCREAS: No significant abnormality. SPLEEN: No significant abnormality. ADRENALS: No significant abnormality. KIDNEYS AND URETERS: No significant abnormality. GI TRACT: No significant abnormality of the stomach, small bowel or colon. Unremarkable appendix. PERITONEUM: No free fluid. No free air. No fluid collection. LYMPH NODES: No significant adenopathy. VASCULATURE: The aorta and its visualized branches are patent and normal in caliber with mild atheros clerosis. URINARY BLADDER: No significant abnormality. REPRODUCTIVE ORGANS: Multiple probable fibroids are seen throughout the uterus. No additional signifi cant abnormality. ADDITIONAL FINDINGS: None. SKELETAL SYSTEM: Mild degenerative changes are present throughout the spine without an acute abnormal ity. IMPRESSION: No acute abnormality of the abdomen or pelvis. Signer Name: Alex Sewell MD Signed: 06/10/2019 12:06 AM Workstation Name: [email or web address]
[2019-06-10] MEDS ORDERED: LACTULOSE 20 GM/30 ML ORAL LIQD PO ONE (00:31)
[2019-06-10] MEDS: METOCLOPRAMIDE 10 MG/2 ML INJ IV ONE (00:32)
[2019-06-10 00:45] VITALS: BP 128/75
== END 2019-06-10 00:47 | disposition home or self-care (01) ==
LOC: ED 18:41
DX: K59.00 Constipation, unspecified (principal); I10 Essential (primary) hypertension; E11.9 Type 2 diabetes mellitus without complications; F32.9 Major depressive disorder, single episode, unspecified; Z98.51 Tubal ligation status; Z79.899 Other long term (current) drug therapy
CPT/HCPCS: 36415; 71046; 74177; 80053; 83690; 83880; 84484; 85025; 99285; J2765; Q9967

== ENCOUNTER 2019-07-19 13:06 | Emergency (ER) | payer SELFPAY ==
--- NOTE | 2019-07-19 13:57 | Emergency Department Report ---
Blank Doc - Documentation Documentation: 48-year-old female that presents with dizziness and unable to control hypergly cemia. This initial assessment/diagnostic orders/clinical plan/treatment(s) is/are subject to change based on patient's health status, clinical progression and re- assessment by fellow clinical providers in the ED. Further treatment and workup at subsequent clinical providers discretion. Patient/guardians urged not to elope from the ED as their condition may be serious if not clinically assessed and managed. Initial orders include: 1- Patient sent to MAIN ED for further evaluation and treatment 2- labs 3- UA
[2019-07-19 15:25] LABS: Basophils % (Auto) 0.3 % (0.0-1.8); Eosinophils # (Auto) 0.1 K/mm3 (0.0-0.4); Eosinophils % (Auto) 1.1 % (0.0-4.3); Hematocrit 35.2 % (30.3-42.9); Hemoglobin 11.7 gm/dl (10.1-14.3); Lymphocytes # (Auto) 1.9 K/mm3 (1.2-5.4); Mean Corpuscular HGB Conc 33 % (30-34); Mean Corpuscular Volume 83 fl (79-97); Monocytes # (Auto) 0.5 K/mm3 (0.0-0.8); Monocytes % (Auto) 6.2 % (0.0-7.3); Platelet Count 288 K/mm3 (140-440); Red Blood Count 4.22 M/mm3 (3.65-5.03); Red Cell Distribution Width 13.8 % (13.2-15.2)
--- NOTE | 2019-07-19 15:49 | Emergency Department Report ---
ED General Adult HPI - General Chief complaint: Hyperglycemia Stated complaint: BLURR VISION/REFILL MEDS/DIABETIC Time Seen by Provider: 07/19/19 13:55 Source: patient Mode of arrival: Ambulatory Limitations: No Limitations - History of Present Illness Initial comments: 48-year-old male with history of hypertension and depression presents to ED with complaint of hyperglycemia. Patient states she has been out of her diabetes medication times one week. Patient denies any nausea or vomiting. She reports slightly blurred vision. Denies headache. Patient also requesting medication refills on her lisinopril and Paxil. -: week(s) (1) Consistency: constant Improves with: medication Worsens with: none Associated Symptoms: denies: chest pain, fever/chills, headaches, nausea/vomiting, shortness of breath - Related Data Previous Rx's Medication Instructions Recorded Last Taken Type Insulin NPH/Regular [NovoLIN 70/30] 25 unit SQ BIDDIAB 30 Days #1 05/20/19 Unknown Rx bottle Aspirin [Adult Aspirin] 81 mg PO DAILY #30 tablet. 06/04/19 Unknown Rx lisinopriL [Zestril TAB] 20 mg PO QDAY #30 tablet 06/04/19 Unknown Rx traZODone [Desyrel] 50 mg PO QHS #14 tab 06/04/19 Unknown Rx Famotidine [Pepcid] 20 mg PO BID #30 tablet 06/10/19 Unknown Rx HYDROcodone/APAP 5-325 [[place] 1 - 2 each PO Q6HR PRN #10 tablet 06/10/19 Unknown Rx 5/325] Lactulose [Cephulac] 20 gm PO QDAY #90 ml 06/10/19 Unknown Rx Metoclopramide [Reglan] 10 mg PO TID PRN #30 tab 06/10/19 Unknown Rx Insulin Glargine [Lantus VIAL] 55 units SUB-Q QHS #1 pen 07/19/19 Unknown Rx Lisinopril [Zestril] 5 mg PO QDAY #30 tablet 07/19/19 Unknown Rx PARoxetine HCl [PARoxetine] 40 mg PO QDAY #30 tablet 07/19/19 Unknown Rx Allergies Allergy/AdvReac Type Severity Reaction Status Date / Time No Known Allergies Allergy Verified 06/02/19 14:40 ED Review of Systems ROS: Stated complaint: BLURR VISION/REFILL MEDS/DIABETIC Other details as noted in HPI Comment: All other systems reviewed and negative Constitutional: denies: chills, fever Eyes: other (reports blurred vision) Respiratory: denies: shortness of breath Cardiovascular: denies: chest pain Gastrointestinal: denies: nausea, vomiting Neurological: denies: headache ED Past Medical Hx - Past Medical History Hx Hypertension: Yes Hx Diabetes: Yes Hx Psychiatric Treatment: Yes (Depression) Additional medical history: h pylori- not treated as of 11-16 - Surgical History Additional Surgical History: Tubal ligation - Social History Smoking Status: Never Smoker Substance Use Type: None - Medications Home Medications: Home Medications Medication Instructions Recorded Confirmed Last Taken Type Insulin NPH/Regular [NovoLIN 70/30] 25 unit SQ BIDDIAB 30 Days #1 05/20/19 06/04/19 Unknown Rx bottle Aspirin [Adult Aspirin] 81 mg PO DAILY #30 tablet. 06/04/19 Unknown Rx lisinopriL [Zestril TAB] 20 mg PO QDAY #30 tablet 06/04/19 Unknown Rx traZODone [Desyrel] 50 mg PO QHS #14 tab 06/04/19 Unknown Rx Famotidine [Pepcid] 20 mg PO BID #30 tablet 06/10/19 Unknown Rx HYDROcodone/APAP 5-325 [[place] 1 - 2 each PO Q6HR PRN #10 tablet 06/10/19 Unknown Rx 5/325] Lactulose [Cephulac] 20 gm PO QDAY #90 ml 06/10/19 Unknown Rx Metoclopramide [Reglan] 10 mg PO TID PRN #30 tab 06/10/19 Unknown Rx Insulin Glargine [Lantus VIAL] 55 units SUB-Q QHS #1 pen 07/19/19 Unknown Rx Lisinopril [Zestril] 5 mg PO QDAY #30 tablet 07/19/19 Unknown Rx PARoxetine HCl [PARoxetine] 40 mg PO QDAY #30 tablet 07/19/19 Unknown Rx ED Physical Exam - General Limitations: No Limitations General appearance: alert, in no apparent distress - Head Head exam: Present: atraumatic, normocephalic - Eye Eye exam: Present: normal appearance, PERRL, EOMI - ENT ENT exam: Present: mucous membranes moist - Neck Neck exam: Present: normal inspection - Respiratory Respiratory exam: Present: normal lung sounds bilaterally. Absent: respiratory distress - Cardiovascular Cardiovascular Exam: Present: regular rate, normal rhythm - GI/Abdominal GI/Abdominal exam: Present: soft. Absent: distended, tenderness - Extremities Exam Extremities exam: Present: normal inspection - Neurological Exam Neurological exam: Present: alert, oriented X3 - Psychiatric Psychiatric exam: Present: normal affect, normal mood - Skin Skin exam: Present: warm, dry, intact, normal color ED Course Vital Signs 07/19/19 07/19/19 07/19/19 13:16 16:07 16:08 Temperature 99 F Pulse Rate 87 73 Respiratory 18 16 16 Rate Blood Pressure 139/75 Blood Pressure 116/68 [Left] O2 Sat by Pulse 97 99 99 Oximetry ED Medical Decision Making - Lab Data Result diagrams: 07/19/19 15:12 07/19/19 15:12 - Medical Decision Making - glucose 238 - pt not in DKA - exam is unremarkable - pt requesting med refills - outpt f/u advised, return precautions given - Differential Diagnosis hyperglycemia, DKA Critical care attestation.: If time is entered above; I have spent that time in minutes in the direct care of this critically ill patient, excluding procedure time. ED Disposition Clinical Impression: Hyperglycemia, Medication refill Disposition: - TO HOME OR SELFCARE Is pt being admited?: No Condition: Stable Instructions: Diabetic Hyperglycemia (ED) Prescriptions: Insulin Glargine [Lantus VIAL] 55 units SUB-Q QHS #1 pen PARoxetine HCl [PARoxetine] 40 mg PO QDAY #30 tablet Lisinopril [Zestril] 5 mg PO QDAY #30 tablet Referrals: [facility] [Provider Group] - 3-5 Days [facility] [Outside] - 3-5 Days [facility] [Outside] - 3-5 Days Time of Disposition: 15:58
[2019-07-19 15:50] LABS: Alanine Aminotransferase 12 units/L (7-56); Albumin 3.5 g/dL (3.9-5); BUN/Creatinine Ratio 20; Blood Urea Nitrogen 12 mg/dL (7-17); Calcium 9.3 mg/dL (8.4-10.2); Hemolysis Index 3
[2019-07-19 16:09] VITALS: BP 116/68
== END 2019-07-19 16:55 | disposition home or self-care (01) ==
LOC: ED 13:06
DX: E11.65 Type 2 diabetes mellitus with hyperglycemia (principal); I10 Essential (primary) hypertension; F32.9 Major depressive disorder, single episode, unspecified; Z76.0 Encounter for issue of repeat prescription; Z98.51 Tubal ligation status; Z79.899 Other long term (current) drug therapy
CPT/HCPCS: 36415; 80053; 82805; 82962; 85025

== ENCOUNTER 2019-08-11 16:20 | Emergency (ER) | payer SELFPAY ==
[2019-08-11 16:27] VITALS: BP 132/79
== END 2019-08-11 18:00 | disposition left against medical advice (07) ==
LOC: ED 16:20
DX: R07.89 Other chest pain (principal); Z53.21 Procedure and treatment not carried out due to patient leaving prior to being seen by health care provider